=== PATIENT | male | born 1980 | race Caucasian/White ===

== ENCOUNTER 2021-08-01 17:48 | Outpatient (REF) | payer MEDICAID, SELFPAY ==
[2021-08-07 13:28] LABS: 2-OH-Ethyl-Flurazepam Negative ng/mL (Cutoff: 10); 7-NH-Clonazepam 304 ng/mL (Cutoff: 10); 7-NH-Flunitrazepam Negative ng/mL (Cutoff: 10); Alpha OH-Alprazolam Negative ng/mL (Cutoff: 10); Alpha-OH Midazolam Negative ng/mL (Cutoff: 10); Alpha-OH-Triazolam Negative ng/mL (Cutoff: 10); Alprazolam Negative ng/mL (Cutoff: 10); Benzodiazepines Interpretation Positive.; Chlordiazepoxide Negative ng/mL (Cutoff: 10); Clobazam Negative ng/mL (Cutoff: 10); Clonazepam 10 ng/mL (Cutoff: 10); Diazepam Negative ng/mL (Cutoff: 10); Flurazepam Negative ng/mL (Cutoff: 10); Lorazepam Negative ng/mL (Cutoff: 10); Midazolam Negative ng/mL (Cutoff: 10); N-Desmethylclobazam Negative ng/mL (Cutoff: 10); Prazepam Negative ng/mL (Cutoff: 10); Temazepam Negative ng/mL (Cutoff: 10); Triazolam Negative ng/mL (Cutoff: 10); Zolpidem Carboxylic acid Negative ng/mL (Cutoff: 10)
== END 2021-08-01 17:49 | disposition home or self-care (01) ==
LOC: NCHCN 17:48
PROVIDERS: Visit Provider Family Medicine
DX: Z51.81 Encounter for therapeutic drug level monitoring (principal); R82.5 Elevated urine levels of drugs, medicaments and biological substances
CPT/HCPCS: 80346

== ENCOUNTER 2021-09-09 13:26 | Emergency (ER) | payer MEDICAID, SELFPAY ==
[2021-09-09 13:38] VITALS: BP 118/65; PULSE 74; RESP 14; TEMP 36.7; O2SAT 96
--- NOTE | 2021-09-09 13:56 | W.ED.GENAD ---
Discharge Plan Disposition Patient Disposition: HOME Condition: Good Discharge Details Clinical Impression: Open leg wound Primary Care Provider: Unknown,Unknown ED Provider: Alexia Escobar Home Meds and New Rx's Prescriptions: Continued Biktarvy 30-120-15 mg Tablet 1 tab PO DAILY Rx Instructions: unsure of dose Vyvanse 60 mg Capsule 60 mg PO DAILY clonazepam 2 mg Tablet 2 mg PO DAILY aripiprazole [Abilify] 10 mg Tablet 10 mg PO DAILY Discharge Instructions Instructions: Acute Wound Care (ED) Additional Instructions: The wound on the back of her leg does not appear acutely infected. However, with the low risk of infection, I do feel that it would be appropriate for you to use your typical Bactrim twice a day for the next 5 days. Please keep the current dressing on for the next 5 days. Please follow-up with your primary care this week to have your wound reevaluated. If you develop fevers/chills, increased pain or other new/worsening symptoms please seek care urgently once again. Referrals: Renny Alex [ [facility] STAFF PHYSICIAN] - Discharge Data Discharge Date/Time-TO BE ENTERED AT DEPARTURE: 09/09/21 15:38 Medical Decision Making Patient is a 40 year old male presenting today with c/c of lesion to left posterior thigh. He states that about one week ago he pulled somethign off this area while in the shower. Is not sure if this was a tick or scab. He states taht since then he continues to catch the area on his pants when he pulls them up. Denies fevers/chills. No rash elsewhere. No radiation of pain. He reports that he has a history of HIV, states this is well controlled. He states he often gets MRSA infections but has not had one in quite some time. States that he has Bactrim at home from his ID physician in the event he has skin infection. On exam, patient appears nontoxic. He has a nickel size wound to posterior left thigh. Appears to have romoved thee skin in this areae. No surrounding erythema, warmth, drainage, induration. Does not appear infected. He had a flap of scab over the area that appears to have been catching. No bullseye rash. Patient is not in the window for tick and Lyme testing in the event that this was tick bite. Wound was cleansed by myself. The scab was debrided. Attempted to have wound care nurse evaluate the patient but they were not available. Mepelex was applied over this area. The patient and I discussed risks/benefits of abx. given his risk factors, and his history of MRSA infection, will have him take the abx that is recommended by his typical ID team. He reports that he has plenty at home. I have asked that he f/u with his PCP this week for reevaluation. Strict return precautions given. All of his quesitons and concerns were addressed, he is in agreement with this plan. HPI General Date/Time Provider Initiated Documentation: 09/09/21 13:26. Limitations to Documentation: no limitations. Information obtained by: patient and RN notes reviewed. History of Present Illness 40 year old M presents to the emergency department with the chief complaint of lesion posterior left thigh, described as moderate, Quality is described as burning, and is localized to the left and lower extremity. Patient reports no radiation. Patient started experiencing this day(s) and it has been constant. Immobilization improves symptom(s), (pressure off of the area) Movement worsens symptoms (pressure on the wound) . Patient notes no other symptoms.. Patient did receive the following treatments prior to arrival, none Related Data Home Medications Medication Instructions Recorded Confirmed aripiprazole 10 mg tablet (Abilify) 10 mg PO DAILY 09/09/21 09/09/21 bictegravir 30 mg-emtricitabine 1 tab PO DAILY 09/09/21 120 mg-tenofovir alafenam 15 mg tablet (Biktarvy) clonazepam 2 mg tablet 2 mg PO DAILY 09/09/21 09/09/21 lisdexamfetamine 60 mg capsule 60 mg PO DAILY 09/09/21 09/09/21 (Vyvanse) Allergies Allergy/AdvReac Type Severity Reaction Status Date / Time No Known Allergies Allergy Unverified 09/09/21 15:02 General Stated Complaint: RashLesion PATRICK: 5 Review of Systems Constitutional Constitutional: Reports as per HPI, Denies chills and Denies fever(s) Musculoskeletal Musculoskeletal: Reports as per HPI Integumentary/Breasts Skin/Breast: Reports as per HPI Neurologic Neurologic: Reports as per HPI, Denies sensory deficit and Denies paresthesias [facility] All Active Problems (Updated 09/09/21 @ 15:12 by SINGH Soni) Open leg wound (Acute) Social History Smoking/Tobacco Use Status: Former Tobacco Use Smoking risk assessment performed?: Yes Drug use: Daily Substance use type: marijuana Do you feel safe at home: Yes (depends on what day it is) Do you feel safe in your relationship?: Yes Additional Social history: offered assistance - states he has a bad neighbor Exam Const General: cooperative, healthy appearing, comfortable, no acute distress and well developed Nutritional Appearance: average body habitus and well nourished Orientation: alert and awake Resp Effort & Inspection: normal respiratory effort, able to speak in complete sentences and no respiratory distress Cardio Rate: regular rate Rhythm: regular rhythm Skin Lesions: lesion noted (posterior left thigh) Neuro General: patient alert and patient awake Cognition: normal cognition Speech: speech normal Gait: normal gait Sensory Exam: no sensory deficits noted Extrem Upper/lower leg/hip images: 1. Nickel sized circular area of wound opening. No active drainage. Has flap of scab that appears to have been pulled back. Superficial wound, no tracking or deep space involvement. No surrounding erythema, warmth or induration. Psych Appearance: grossly normal and well kempt Mental Status: mental status grossly normal Speech and Movement: speech and movement normal Course Vital Signs Vital signs: Vital Signs Temperature 36.7 C 09/09/21 13:38 Pulse 74 09/09/21 13:38 Respiratory Rate 14 09/09/21 13:38 Blood Pressure 118/65 09/09/21 13:38 Pulse Oximetry 96 09/09/21 13:38 Temperature 36.7 C 09/09/21 13:38 Temperature Source Oral 09/09/21 13:38 Pulse 74 09/09/21 13:38 Respiratory Rate 14 09/09/21 13:38 Blood Pressure 118/65 09/09/21 13:38 Blood Pressure Position Sitting 09/09/21 13:38 Pulse Oximetry 96 09/09/21 13:38 Oxygen Delivery Method Room Air 09/09/21 13:38 Oxygen Flow Rate 0 09/09/21 13:38
== END 2021-09-09 15:38 | disposition home or self-care (01) ==
PROVIDERS: Emergency Provider Physician Assistant; PCP Family Medicine
DX: S81.802A Unspecified open wound, left lower leg, initial encounter (principal); X58.XXXA Exposure to other specified factors, initial encounter; Z21 Asymptomatic human immunodeficiency virus [HIV] infection status; Z86.14 Personal history of Methicillin resistant Staphylococcus aureus infection
CPT/HCPCS: 99281

== ENCOUNTER 2021-11-07 17:06 | Outpatient (REF) | payer MEDICAID, SELFPAY ==
[2021-11-15 13:46] LABS: Amphetamine 18550 ng/mL (Cutoff: 25); Amphetamines Interpretation Positive.; MDA (Ecstasy Metabolite) Negative ng/mL (Cutoff: 25); MDMA (Ecstasy) Negative ng/mL (Cutoff: 25); Methamphetamine 1730 ng/mL (Cutoff: 25); Phentermine Negative ng/mL (Cutoff: 25); Pseudoephedrine/Ephedrine Negative ng/mL (Cutoff: 25)
== END 2021-11-07 17:07 | disposition home or self-care (01) ==
LOC: NCHCN 17:06
PROVIDERS: PCP Family Medicine; Visit Provider Family Medicine
DX: Z51.81 Encounter for therapeutic drug level monitoring (principal)
CPT/HCPCS: 80324

== ENCOUNTER 2022-07-27 20:53 | Emergency (ER) | payer MEDICAID, SELFPAY ==
[2022-07-27 20:59] VITALS: BP 136/69; PULSE 74; RESP 18; TEMP 36.6; O2SAT 97
--- NOTE | 2022-07-27 21:15 | ED.GENADUL_ITS ---
Discharge Plan Disposition Patient Disposition: Home Condition: Good Discharge Details Clinical Impression: Acute paronychia of finger of left hand Primary Care Provider: Ragini Rodriguez ED Provider: Yoel Cabral Home Meds and New Rx's Prescriptions: New sulfamethoxazole-trimethoprim [Bactrim DS] 800-160 mg tablet 1 tab PO BID 7 Days Qty: 14 0RF No Action aripiprazole [Abilify] 10 mg tablet 10 mg PO DAILY Vyvanse 50 mg capsule 50 mg PO DAILY lurasidone 40 mg tablet 40 mg PO DAILY Rx Instructions: must administer with food (at least 350 calories) imiquimod 5 % cream in packet 1 applic topical .COMPLEX Qty: 48 0RF Rx Instructions: 1 applic topically 3x/week; Apply a thin layer 3 times per week (on alternate days) at bedtime; leave on skin for 6-10 hours, then remove with mild soap and water. Continue until there is total clearance of the warts or for a maximum duration of therapy of 16 weeks. Biktarvy 30-120-15 mg Tablet 1 tab PO DAILY Rx Instructions: unsure of dose Discharge Instructions Instructions: Sulfamethoxazole/Trimethoprim (By mouth), Paronychia (ED) Additional Instructions: At this time you have evidence of a skin infection called paronychia. Please take the antibiotic Bactrim as directed. It is been sent to your pharmacy on file. If you notice any extension of the pain or redness of your finger, or significant pain with movement of your finger please return immediately. If you notice any worsening of your symptoms, or any new symptoms such as vomiting, diarrhea, fever, chills, shortness of breath, chest pain, numbness, weakness, or fainting , please return immediately to the emergency department for reevaluation. Please follow up with your primary care provider as soon as possible for reassessment and reevaluation. As always, it was a pleasure participating in your medical care today. Referrals: Ragini Rodriguez NP [Primary Care Provider] - Medical Decision Making 41-year-old male with a past medical history of HIV which is contro lled with medication, history of previous abscesses that were MRSA positive, presents today for a lesion on his left index finger. Is been present for the last few days. Mild swelling and tenderness. He denies any drainage. He states that he has had lesions like this in the past for which she is taking Bactrim. They were MRSA in the past. No other complaints at this time. No significant pain with flexion or extension of the finger. No fever or chills. Physical exam demonstrates evidence of large paronychia on the patient's left index finger. The area was drained and cultured. No evidence of flexor or extensor tenosynovitis clinically on exam. Will treat with a bottle of Bactrim here and a prescription for home use. Discussed red flags for which to return. I have extensively reviewed the treatment plan and discharge instructions with the patient. I have addressed all patient concerns at this time. The patient was made aware of what symptoms to monitor for that would warrant a return to the emergency department. Discussed the plan with the patient, they demonstrate verbal understanding and agreement with our assessment and plan at this time. The documentation in this chart was dictated using [employer] dictation software. Please excuse any dictation errors. HPI General Date/Time Provider Initiated Documentation: 07/27/22 21:14 . HPI Narrative: 41-year-old male with a past medical history of HIV which is controlled with medication, history of previous abscesses that were MRSA positive, presents today for a lesion on his left index finger. Is been present for the last few days. Mild swelling and tenderness. He denies any drainage. He states that he has had lesions like this in the past for which she is taking Bactrim. They were MRSA in the past. No other complaints at this time. No significant pain with flexion or extension of the finger. No fever or chills. Related Data Home Medications Medication Instructions Recorded Confirmed bictegravir 30 mg-emtricitabine 1 tab PO DAILY 09/09/21 07/27/22 120 mg-tenofovir alafenam 15 mg tablet (Biktarvy) aripiprazole 10 mg tablet (Abilify) 10 mg PO DAILY 07/10/22 07/27/22 imiquimod 5 % topical cream packet 1 applic topical .COMPLEX #48 ea 07/10/22 07/27/22 lisdexamfetamine 50 mg capsule 50 mg PO DAILY 07/10/22 07/27/22 (Vyvanse) lurasidone 40 mg tablet 40 mg PO DAILY 07/10/22 07/27/22 sulfamethoxazole 800 1 tab PO BID 7 days #14 tabs 07/27/22 mg-trimethoprim 160 mg tablet (Bactrim DS) Previous Rx's Medication Instructions Recorded imiquimod 5 % topical cream packet 1 applic topical .COMPLEX #48 ea 07/10/22 sulfamethoxazole 800 1 tab PO BID 7 days #14 tabs 07/27/22 mg-trimethoprim 160 mg tablet (Bactrim DS) Allergies Allergy/AdvReac Type Severity Reaction Status Date / Time mushroom Allergy Intermediate Swelling/Ed Verified 07/27/22 21:03 christopher pollen extracts Allergy Intermediate Verified 07/27/22 21:03 General Stated Complaint: RashLesion PATRICK: 4 Review of Systems All systems reviewed & are unremarkable except as noted in HPI and below PFSH All Active Problems Acute paronychia of finger of left hand (Acute) Medical cannabis use (Chronic) Cannabis dependence (Acute) HIV (human immunodeficiency virus infection) (Chronic ~2018) Bipolar 1 disorder (Chronic) Nasal septum ulceration (Acute) ADHD (attention deficit hyperactivity disorder) (Chronic) Genital warts (Acute) Anal dysplasia (Acute) Medical History Cellulitis and abscess of face History of methicillin resistant staphylococcus aureus (MRSA) PVD (posterior vitreous detachment), left eye Substance use disorder Previous PCP record indicates pt reported using stimulant street drugs in the past (pg 16 of 85 pg PDF) Tertiary syphilis Ocular syphilis Tobacco use disorder Surgical History Status post extracapsular cataract extraction of left eye Family History Paternal Grandmother Alcohol use disorder Maternal Grandfather Prostate cancer Diabetes Paternal Uncle Throat cancer Mother Diabetes High cholesterol Other Heart disease Social History Smoking/Tobacco Use Status: Former Tobacco Use Tobacco: How many years used: 10 Quit status: has quit before Second Hand Exposure: No Smoking risk assessment performed?: Yes Alcohol Intake: current Alcohol Intake frequency: a few times a month Drug use: Daily Substance use type: marijuana Adopted: No Caregiver/Support person: No Foster care: No Household members: none Housing: house Number of Children: 2 Education Level: college Details: Master's Degree Do you need help understanding health information?: Rarely current occupation: unemployed Pets and animals: Yes Pets and animals: dog(s) Sexually active: Yes Do you think of yourself as: bisexual Current gender identity: male What is your relationship status?: How often do you talk on the phone with friends or family?: once per week How often do you get together with friends or relatives?: once per week Do you belong to any clubs or organized social groups?: no Panel score (0-1 are the most socially isolated patients): 0 What type of physical activity do you participate in: none Meli/Synagogue: None Seatbelt use: always Helmet use: Yes Helmet use: always Drive intox or ride w/intox tier truck driver: No Do you feel safe at home: Yes (depends on what day it is) Do you feel safe in your relationship?: Yes Additional Social history: offered assistance - states he has a bad neighbor Exam Narrative Exam Narrative: 1.Const: Well-nourished, Well-developed, appearing stated age 2.Eyes: PERRL, no conjunctival injection, and symmetrical lids. 3.ENT: Atraumatic external nose and ears. Moist MM. Neck: Symmetric, trachea midline, No thyromegaly. 4.CVS: +S1/S2, No murmurs or gallops. Peripheral pulses 2+ and equal in all extremities. Brisk capillary refill in all extremities. 5.RESP: Unlabored respiratory effort. Clear to auscultation bilaterally. No wheezes rales or rhonchi 6.GI: Soft, Nontender/Nondistended, No hepatosplenomegaly. No guarding or rebound. 7.MSK: Normocephalic/Atraumatic, Extremities w/o deformity or ttp No cyanosis or clubbing, Normal movement of all extremities 8.Skin: Left index finger demonstrates a large paronychia No active drainage. Minimal redness and swelling surrounding the area. It is fluctuant. Notable loss. No pain with active or passive flexion or extension of the finger. No sausage shaped digit. 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 Sensation grossly intact, no focal neurologic deficits. 10.Psych: (AAO) x3. Appropriate mood and affect Course Vital Signs Vital signs: Vital Signs Temperature 36.6 C 07/27/22 20:59 Pulse 74 07/27/22 20:59 Respiratory Rate 18 07/27/22 20:59 Blood Pressure 136/69 07/27/22 20:59 Pulse Oximetry 97 07/27/22 20:59 Temperature 36.6 C 07/27/22 20:59 Temperature Source Oral 07/27/22 20:59 Pulse 74 07/27/22 20:59 Respiratory Rate 18 07/27/22 20:59 Respiratory Effort Normal 07/27/22 21:04 Blood Pressure 136/69 07/27/22 20:59 Blood Pressure Position Sitting 07/27/22 20:59 Pulse Oximetry 97 07/27/22 20:59 Oxygen Delivery Method Room Air 07/27/22 20:59 Oxygen Flow Rate 0 07/27/22 20:59 Pain Level 4 07/27/22 20:59 Procedures Abscess I/D Site: Hand (Left index finger) Side (if applicable): Left Technique: Needle Aspiration Irrigation: No Packing used?: None
[2022-07-27] MEDS: Sulfameth/Trimeth DS, 2 TABS/BTL 1 TAB PO (21:28)
== END 2022-07-27 21:32 | disposition home or self-care (01) ==
PROVIDERS: Emergency Provider Student in an Organized Health Care Education/Training Program; PCP Nurse Practitioner Family
DX: L03.012 Cellulitis of left finger (principal); Z21 Asymptomatic human immunodeficiency virus [HIV] infection status
CPT/HCPCS: 10160; 87077; 99283; 87070; 87186; 87205; 99284

== ENCOUNTER 2022-12-20 12:22 | Observation (INO) | payer MEDICAID, SELFPAY ==
[2022-12-20] VITALS (16 sets, daily range): BP systolic 99–166; BP diastolic 56–90; PULSE 63–110; RESP 13–21; TEMP 35.6–37; O2SAT 96–100; BMI 20.7
--- NOTE | 2022-12-20 12:53 | ED.GENADUL_ITS ---
Discharge Plan Disposition Patient Disposition: Admit to [facility] Condition: Stable Discharge Details Chief Complaint: Cellulitis Clinical Impression: Abscess, perianal Primary Care Provider: Ragini Rodriguez ED Provider: Parminder Braxton Home Meds and New Rx's Prescriptions: No Action aripiprazole [Abilify] 10 mg tablet 10 mg PO DAILY Vyvanse 50 mg capsule 50 mg PO DAILY lurasidone 40 mg tablet 40 mg PO DAILY Rx Instructions: must administer with food (at least 350 calories) imiquimod 5 % cream in packet 1 applic topical .COMPLEX Qty: 48 0RF Rx Instructions: 1 applic topically 3x/week; Apply a thin layer 3 times per week (on alternate days) at bedtime; leave on skin for 6-10 hours, then remove with mild soap and water. Continue until there is total clearance of the warts or for a maximum duration of therapy of 16 weeks. Biktarvy 30-120-15 mg Tablet 1 tab PO DAILY Rx Instructions: unsure of dose Medical Decision Making 42 yo male with hx of hib, adhd, who comes in with cc of feeling as though he has an abscess just left to his rectum for 3 days. Denies fevers, chills, abdomen pain, drainage from the rectum. He is stable on arrival, does have 3cm erythema just left of the anal entrance, no visible white head, does feel fluctuant. Suspect perianal abscess, will obtain CT to delineate how deep the abscess is. pt with 4x4cm abscess, discussed with surgeon Dr. De Dios who plans to bring to the OR for drainage, pt updated and agrees with plan Differential Diagnosis Differential Diagnosis: perianal, ischiorectal abscess Imaging Data Radiologic Study: Attestation: I personally reviewed and interpreted this imaging study as follows: Imaging: CT Scan Radiologist's impression: Patient Name: Sam Quinn III Unit #: [id number] Loc: ER ? Ordering Provider:? Parminder Braxton M.D. Status: REG ER ? Primary Care Provider: Ragini Rodriguez [employer] Date of Exam: 12/20/22 Sex: M ? : 1980 Age: 42 ? Exam(s) a CT:CT abdomen & pelvis w Exam(s) CT ABDOMEN ? PELVIS W EXAM:? CT ABDOMEN ? PELVIS W CLINICAL HISTORY: ? ?rectal abscess ? TECHNIQUE:? Imaging Protocol: Axial computed tomography images with coronal and sagittal reformatted images were created and reviewed CONTRAST MATERIAL:? Intravenous: Omnipaque 350 Contrast volume:100 mL Oral: No COMPARISON:? No exams were available for comparison FINDINGS: ABDOMEN: Lung Bases: Normal where visualized. Liver: Normal density. There are 2 4 mm hypodensities in the right lobe of the liver.? There is a 3 mm hypodense lesion in the subcapsular region of the left lobe of the liver.? These are indeterminate.? Portal, Superior Mesenteric, and Splenic Veins: Unremarkable.? Gallbladder and Biliary Tract: No radiodense calculus or dilation. Pancreas: Normal density, no abnormal calcifications or inflammatory process. Spleen: Normal. Adrenals: No masses seen. Kidneys: Normal size, contour and axis. No radiodense stones or obstructive uropathy. No masses seen. Abdominal Aorta: Abdominal portion non-dilated. Mild atherosclerosis. Bowel: No obstruction or bowel wall thickening. No evidence of appendicitis.? Peritoneal Cavity: No ascites, collection or mesenteric inflammatory response.? No free air. Lymph Nodes: Within normal limits. Bones: Within normal limits for the patient's age.? Soft Tissues: There is a multiloculated fluid collection in the perirectal subcutaneous tissues measuring 4.5 cm cc by 4.2 cm AP x 2.8 cm transverse.? PELVIS: Bladder: Symmetric distention, no gross wall thickening. Reproductive Organs: Unremarkable as visualized. Lymph Nodes: Within normal limits. Bones: Within normal limits for the patient's age.? IMPRESSION: 1. 4.5 x 4.2 x 2.8 cm left perirectal abscess. 2. Tiny hypodensities in the liver.? Follow-up MRI without and with contrast should be considered for further evaluation. 3. Findings were discussed with Dr. Braxton at 2:21 p.m. on 12/20/2022. Lab Data Lab results reviewed: Yes I reviewed the patient's lab results. HPI General Mode of arrival: ambulatory . Date/Time Provider Initiated Documentation: 12/20/22 12:25 . Limitations to Documentation: no limitations . Information obtained by: patient . History of Present Illness 42 year old M presents to the emergency department with the chief complaint of left sided rectal pain/swelling, described as moderate, Quality is described as aching, Patient started experiencing this day(s) (3) and it has been constant. No relieving factors improve symptom(s), No exacerbating factors reported . Patient notes no other symptoms.. Patient did receive the following treatments prior to arrival, none Related Data Home Medications Medication Instructions Recorded Confirmed bictegravir 30 mg-emtricitabine 1 tab PO DAILY 09/09/21 07/27/22 120 mg-tenofovir alafenam 15 mg tablet (Biktarvy) aripiprazole 10 mg tablet (Abilify) 10 mg PO DAILY 07/10/22 07/27/22 imiquimod 5 % topical cream packet 1 applic topical .COMPLEX #48 ea 07/10/22 07/27/22 lisdexamfetamine 50 mg capsule 50 mg PO DAILY 07/10/22 07/27/22 (Vyvanse) lurasidone 40 mg tablet 40 mg PO DAILY 07/10/22 07/27/22 Previous Rx's Medication Instructions Recorded imiquimod 5 % topical cream packet 1 applic topical .COMPLEX #48 ea 07/10/22 Allergies Allergy/AdvReac Type Severity Reaction Status Date / Time mushroom Allergy Intermediate Swelling/Ed Verified 07/27/22 21:03 christopher pollen extracts Allergy Intermediate Verified 07/27/22 21:03 General Stated Complaint: RashLesion PATRICK: 3 Review of Systems All systems reviewed & are unremarkable except as noted in HPI and below Constitutional Constitutional: Denies chills, Denies fever(s) and Denies weakness Cardiovascular Cardiovascular: Denies chest pain and Denies dyspnea Respiratory Respiratory: Denies cough and Denies dyspnea Gastrointestinal Gastrointestinal: Denies abdominal pain, Denies nausea and Denies vomiting Musculoskeletal Musculoskeletal: Denies joint swelling Neurologic Neurologic: Denies weakness [facility] All Active Problems (Updated 12/20/22 @ 14:54 by Parminder Braxton MD) Abscess, perianal (Acute) Risk for sexually transmitted disease (Acute) Medical cannabis use (Chronic) Cannabis dependence (Acute) HIV (human immunodeficiency virus infection) (Chronic ~2018) Bipolar 1 disorder (Chronic) Nasal septum ulceration (Acute) ADHD (attention deficit hyperactivity disorder) (Chronic) Genital warts (Acute) Anal dysplasia (Acute) Medical History Cellulitis and abscess of face History of methicillin resistant staphylococcus aureus (MRSA) Infection of rectum due to Chlamydia trachomatis (~05/22/22) PVD (posterior vitreous detachment), left eye Substance use disorder Previous PCP record indicates pt reported using stimulant street drugs in the past (pg 16 of 85 pg PDF) Tertiary syphilis Ocular syphilis Tobacco use disorder Surgical History Status post extracapsular cataract extraction of left eye Family History Paternal Grandmother Alcohol use disorder Maternal Grandfather Prostate cancer Diabetes Paternal Uncle Throat cancer Mother Diabetes High cholesterol Other Heart disease Social History Smoking/Tobacco Use Status: Former Tobacco Use Tobacco: How many years used: 10 Quit status: has quit before Second Hand Exposure: No Smoking risk assessment performed?: Yes Alcohol Intake: current Alcohol Intake frequency: a few times a month Drug use: Daily Substance use type: marijuana Adopted: No Caregiver/Support person: No Foster care: No Household members: none Housing: house Number of Children: 2 Education Level: college Details: Master's Degree Do you need help understanding health information?: Rarely current occupation: unemployed Pets and animals: Yes Pets and animals: dog(s) Sexually active: Yes Do you think of yourself as: bisexual Current gender identity: male What is your relationship status?: How often do you talk on the phone with friends or family?: once per week How often do you get together with friends or relatives?: once per week Do you belong to any clubs or organized social groups?: no Panel score (0-1 are the most socially isolated patients): 0 What type of physical activity do you participate in: none Meli/Congregational: None Seatbelt use: always Helmet use: Yes Helmet use: always Drive intox or ride w/intox caterpillar driver: No Do you feel safe at home: Yes Do you feel safe in your relationship?: Yes Exam Const General: no acute distress Orientation: alert HENMT Head: normal to inspection Ears: external ears normal General nose exam: external nose normal Mouth: moist mucous membranes Eyes General: appearance normal, both eyes and all related structures Neck Neck: normal visual inspection Resp Effort & Inspection: normal respiratory effort and able to speak in complete sentences Cardio Rate: regular rate GI Palpation: soft and nontender Skin General skin exam: no rashes or lesions noted Neuro General: patient alert and patient oriented x3 Extrem General: normal to inspection Psych Mental Status: mental status grossly normal Course Vital Signs Vital signs: Vital Signs Temperature 36.2 C L 12/20/22 12:27 Pulse 110 H 12/20/22 12:27 Respiratory Rate 18 12/20/22 12:27 Blood Pressure 117/79 12/20/22 12:27 Pulse Oximetry 97 12/20/22 12:27 Temperature 36.2 C L 12/20/22 12:27 Temperature Source Oral 12/20/22 12:27 Pulse 110 H 12/20/22 12:27 Respiratory Rate 18 12/20/22 12:27 Respiratory Effort Normal, Non-Labored 12/20/22 12:45 Blood Pressure 117/79 12/20/22 12:27 Blood Pressure Position Sitting 12/20/22 12:27 Pulse Oximetry 97 12/20/22 12:27 Oxygen Delivery Method Room Air 12/20/22 12:27 Oxygen Flow Rate 0 12/20/22 12:27
[2022-12-20 13:12] LABS: Abs Immature Grans 0.04 10^3/uL (0.0-0.06); Absolute Basophil Count 0.03 10^3/uL (0.0-0.2); Absolute Eosinophil Count 0.09 10^3/uL (0.0-0.7); Absolute Lymphocyte Count 0.98 10^3/uL (1.2-3.4); Absolute Monocyte Count 0.82 10^3/uL (0.1-0.8); Absolute Neutrophil Count 7.27 10^3/uL (1.2-6.7); Basophils % 0.3; HCT 43.2 % (40.0-50.0); HGB 15.1 g/dL (13.5-17.5); Immature Grans % 0.4; Lymphocytes % 10.6; MCH 30.6 pg (27.0-33.0); MCV 87 fL (80-95); MPV 9.9 fL (8.0-11.0); Monocytes % 8.9; Neutrophils % 78.8; Platelet Count 259 10^3/uL (130-400); RBC 4.94 10^6/uL (4.36-5.78); RDW 12.2 % (11.8-14.1); RDW-SD 39.1 fL; WBC 9.23 10^3/uL (4.4-10.8)
[2022-12-20 13:23] LABS: ALT 18 U/L (16-63); AST 12 U/L (15-37); Albumin 3.5 g/dL (3.4-5.0); BUN 13 mg/dL (7-18); Bilirubin, Total 0.9 mg/dL (0.2-1.0); CREATININE 1.2 mg/dL (0.70-1.30); Calcium 9.4 mg/dL (8.5-10.1); Chloride 100 mmol/L (98-107); Estimated GFR 76.48 (mL/min/1.73m2); Glucose 113 mg/dL (74-106); Magnesium 1.8 mg/dL (1.8-2.4); Potassium 3.8 mmol/L (3.5-5.1); Sodium 135 mmol/L (136-145); Total Protein 7.9 g/dL (6.4-8.2)
[2022-12-20 13:33] LABS: Alkaline Phosphatase 88 U/L (46-116)
--- NOTE | 2022-12-20 13:56 | DI.CT_ITS ---
Exam(s) CT ABDOMEN PELVIS W EXAM: CT ABDOMEN PELVIS W CLINICAL HISTORY: ?rectal abscess TECHNIQUE: Imaging Protocol: Axial computed tomography images with coronal and sagittal reformatted images were created and reviewed CONTRAST MATERIAL: Intravenous: Omnipaque 350 Contrast volume:100 mL Oral: No COMPARISON: No exams were available for comparison FINDINGS: ABDOMEN: Lung Bases: Normal where visualized. Liver: Normal density. There are 2 4 mm hypodensities in the right lobe of the liver. There is a 3 m m hypodense lesion in the subcapsular region of the left lobe of the liver. These are indeterminate. Portal, Superior Mesenteric, and Splenic Veins: Unremarkable. Gallbladder and Biliary Tract: No radiodense calculus or dilation. Pancreas: Normal density, no abnormal calcifications or inflammatory process. Spleen: Normal. Adrenals: No masses seen. Kidneys: Normal size, contour and axis. No radiodense stones or obstructive uropathy. No masses seen. Abdominal Aorta: Abdominal portion non-dilated. Mild atherosclerosis. Bowel: No obstruction or bowel wall thickening. No evidence of appendicitis. Peritoneal Cavity: No ascites, collection or mesenteric inflammatory response. No free air. Lymph Nodes: Within normal limits. Bones: Within normal limits for the patient's age. Soft Tissues: There is a multiloculated fluid collection in the perirectal subcutaneous tissues measu ring 4.5 cm cc by 4.2 cm AP x 2.8 cm transverse. PELVIS: Bladder: Symmetric distention, no gross wall thickening. Reproductive Organs: Unremarkable as visualized. Lymph Nodes: Within normal limits. Bones: Within normal limits for the patient's age. IMPRESSION: 1. 4.5 x 4.2 x 2.8 cm left perirectal abscess. 2. Tiny hypodensities in the liver. Follow-up MRI without and with contrast should be considered for further evaluation. 3. Findings were discussed with Dr. Braxton at 2:21 p.m. on 12/20/2022. Unexpected findings RADIATION DOSE DELIVERED: 710.38mGy.cm Total DLP DATA REPOSITORY: All CT scans at this facility are submitted to the National Radiology Data Registry (NRDR) Dose Index Registry (DIR) with the [employer] (ACR). RADIATION OPTIMIZATION: All CT scans at this facility use at least one of these dose optimization te chniques: automated exposure control; mA and/or kV adjustment per patient size (includes targeted exa ms where dose is matched to clinical indication); or iterative reconstruction.
--- NOTE | 2022-12-20 14:39 | W.PM.HP.N ---
Date of service: 12/20/22 Time of Service: 14:39 Assessment and Plan Assessment and plan (1) Abscess, perianal: Status: Acute Assessment and plan: He does appear to have a perianal abscess. He will benefit from incision and drainage of the abscess. Given his other medical comorbidities, I think it is reasonable to keep him overnight for inpatient observation. We will continue the intravenous antibiotics tonight and repeat a CBC tomorrow to make sure there is no significant change. Assuming he tolerates the discomfort associated with I&D, and has no other signs of sepsis, will plan to discharge him home with outpatient antibiotics at that point. History of Present Illness History of Present Illness Chief Complaint: Anal pain Narrative: Sam is 42 years old. He comes to the emergency department with pain around his anus. He says its been increasing for about 3 days. He denies fevers chills, or any systemic signs of infection. He denies any other particular anorectal pathology. This is never happened to him before. Review of Systems Constitutional Constitutional: Denies body ache(s), Denies fatigue, Denies fever(s), Denies lethargy and Denies poor appetite Eyes Eyes: Reports system reviewed and no additional complaints, except as documented ENT Ears, Nose, Mouth, and Throat: Reports system reviewed and no additional complaints, except as documented Cardiovascular Cardiovascular: Denies chest pain and Denies dyspnea Respiratory Respiratory: Denies chest congestion, Denies cough and Denies dyspnea Gastrointestinal Gastrointestinal: Denies abdominal pain, Denies bloating and Denies constipation Genitourinary Genitourinary: Denies difficulty urinating and Denies scrotal swelling Musculoskeletal Musculoskeletal: Denies myalgias Neurologic Neurologic: Reports system reviewed and no additional complaints, except as documented Psychiatric Psychiatric: Reports system reviewed and no additional complaints, except as documented Endocrine Endocrine: Denies fatigue Hematologic/Lymphatic Hematologic/Lymphatic: Denies easy bleeding and Denies easy bruising PFSH All Active Problems Abscess, perianal (Acute) Risk for sexually transmitted disease (Acute) Medical cannabis use (Chronic) Cannabis dependence (Acute) HIV (human immunodeficiency virus infection) (Chronic ~2018) Bipolar 1 disorder (Chronic) Nasal septum ulceration (Acute) ADHD (attention deficit hyperactivity disorder) (Chronic) Genital warts (Acute) Anal dysplasia (Acute) Medical History Cellulitis and abscess of face History of methicillin resistant staphylococcus aureus (MRSA) Infection of rectum due to Chlamydia trachomatis (~05/22/22) PVD (posterior vitreous detachment), left eye Substance use disorder Previous PCP record indicates pt reported using stimulant street drugs in the past (pg 16 of 85 pg PDF) Tertiary syphilis Ocular syphilis Tobacco use disorder Surgical History Status post extracapsular cataract extraction of left eye Family History Paternal Grandmother Alcohol use disorder Maternal Grandfather Prostate cancer Diabetes Paternal Uncle Throat cancer Mother Diabetes High cholesterol Other Heart disease Social History Smoking/Tobacco Use Status: Former Tobacco Use Tobacco: How many years used: 10 Quit status: has quit before Second Hand Exposure: No Smoking risk assessment performed?: Yes Alcohol Intake: current Alcohol Intake frequency: a few times a month Drug use: Daily Substance use type: marijuana Adopted: No Caregiver/Support person: No Foster care: No Household members: none Housing: house Number of Children: 2 Education Level: college Details: Master's Degree Do you need help understanding health information?: Rarely current occupation: unemployed Pets and animals: Yes Pets and animals: dog(s) Sexually active: Yes Do you think of yourself as: bisexual Current gender identity: male What is your relationship status?: How often do you talk on the phone with friends or family?: once per week How often do you get together with friends or relatives?: once per week Do you belong to any clubs or organized social groups?: no Panel score (0-1 are the most socially isolated patients): 0 What type of physical activity do you participate in: none Meli/Roman Catholic: None Seatbelt use: always Helmet use: Yes Helmet use: always Drive intox or ride w/intox roll off driver: No Do you feel safe at home: Yes Do you feel safe in your relationship?: Yes Meds Allergies and Home Medications Allergies Allergy/AdvReac Type Severity Reaction Status Date / Time mushroom Allergy Intermediate Swelling/Ed Verified 07/27/22 21:03 christopher pollen extracts Allergy Intermediate Verified 07/27/22 21:03 Home Medications Medication Instructions Recorded Confirmed Type bictegravir 30 mg-emtricitabine 1 tab PO DAILY 09/09/21 07/27/22 History 120 mg-tenofovir alafenam 15 mg tablet (Biktarvy) aripiprazole 10 mg tablet (Abilify) 10 mg PO DAILY 07/10/22 07/27/22 History imiquimod 5 % topical cream packet 1 applic topical .COMPLEX #48 ea 07/10/22 07/27/22 Rx lisdexamfetamine 50 mg capsule 50 mg PO DAILY 07/10/22 07/27/22 History (Vyvanse) lurasidone 40 mg tablet 40 mg PO DAILY 07/10/22 07/27/22 History Exam Const General: cooperative, healthy appearing and comfortable HENIA Head: normal to inspection Eyes General: appearance normal, both eyes and all related structures Resp Effort & Inspection: normal respiratory effort Auscultation: clear to auscultation bilaterally Cardio Rate: regular rate Rhythm: regular rhythm Heart Sounds: S1 normal and S2 normal GI Inspection: normal to inspection Palpation: soft, no guarding and nontender Other: Perianal erythema, fluctuance and tenderness Results Imaging Abdomen CT scan report/results: report reviewed and image reviewed CT scan - pelvis: report reviewed and image reviewed Labs 12/20/22 12:55 12/20/22 12:55 Labs: Laboratory Results - last 24 hr 12/20/22 12/20/22 12:55 12:55 WBC 9.23 RBC 4.94 Hgb 15.1 Hct 43.2 MCV 87 MCH 30.6 MCHC 35.0 RDW 12.2 Plt Count 259 MPV 9.9 Immature Gran % 0.4 Neutrophils % 78.8 Lymphocytes % 10.6 Monocytes % 8.9 Eosinophils % 1.0 Basophils % 0.3 Nucleated RBC % 0.0 Absolute Neutrophils 7.27 H Absolute Lymphocytes 0.98 L Absolute Monocytes 0.82 H Absolute Eosinophils 0.09 Absolute Basophils 0.03 Sodium 135 L Potassium 3.8 Chloride 100 Carbon Dioxide 26.0 Anion Gap 9.0 BUN 13 Creatinine 1.2 Est GFR (CKD-EPI 2020) 76.48 Glucose 113 H Calcium 9.4 Magnesium 1.8 Total Bilirubin 0.9 AST 12 L ALT 18 Alkaline Phosphatase 88 Total Protein 7.9 Albumin 3.5 Last Vital Signs Temp 97.2 F L 12/20/22 12:27 Pulse 110 H 12/20/22 12:27 Resp 18 12/20/22 12:27 BP 117/79 12/20/22 12:27 Pulse Ox 97 12/20/22 12:27 Time Spent Time spent with Patient: 40-54 minutes Time was spent: preparing to see the patient(eg.review tests), referring, communicating with other health home care assistant, indepentently interpreting results and counseling the patient
--- NOTE | 2022-12-20 14:40 | ANES.PREOP_ITS ---
General Info Date of Service Date Performed: 12/20/22 Height: 6 ft 4 in Weight: 77.111 kg Body Mass Index (BMI): 20.7 Surgical Procedure: Operation Date: 12/20/22 15:25 Proposed Procedure Side Surgeon p I&D of Buttock Abcramila De Dios MD Meds Allergies and Home Medications Allergies Allergy/AdvReac Type Severity Reaction Status Date / Time mushroom Allergy Intermediate Swelling/Ed Verified 07/27/22 21:03 christopher pollen extracts Allergy Intermediate Verified 07/27/22 21:03 Home Medication Medication Instructions Recorded bictegravir 30 mg-emtricitabine 1 tab PO DAILY 09/09/21 120 mg-tenofovir alafenam 15 mg tablet (Biktarvy) aripiprazole 10 mg tablet (Abilify) 10 mg PO DAILY 07/10/22 imiquimod 5 % topical cream packet 1 applic topical .COMPLEX #48 ea 07/10/22 lisdexamfetamine 50 mg capsule 50 mg PO DAILY 07/10/22 (Vyvanse) lurasidone 40 mg tablet 40 mg PO DAILY 07/10/22 Current Visit Medications: Current Medications Generic Name Dose Route Start Last Admin Trade Name Freq PRN Reason Stop Dose Admin Enoxaparin Sodium 40 mg 12/20/22 15:00 Enoxaparin 40 Mg/0.4 Ml Syr SC Q24H DEEJAY Piperacillin Sod/Tazobactam 100 mls @ 200 mls/hr 12/20/22 14:31 Sod 4.5 gm/ Sodium Chloride IVPB 12/20/22 15:00 NOW ONE Sodium Chloride 500 mls @ 0 mls/hr 12/20/22 14:36 Saline 500ml Bag IV PRN PRN As Directed Ringer's Solution 1,000 mls @ 75 mls/hr 12/20/22 14:45 IV INFUSION DEEJAY IV Miscellaneous Supplies 1 each 12/20/22 13:00 Iv Access IV DIRECTED DEEJAY IV Miscellaneous Supplies 1 each 12/20/22 14:45 Iv Access IV DIRECTED DEEJAY Sodium Chloride 0 ml 12/20/22 12:49 Normal Saline Flush 10 Ml Syr IVP PRN PRN Sodium Chloride 0 ml 12/20/22 14:36 Normal Saline Flush 10 Ml Syr IVP PRN PRN PFSH Active Problems Active Problems: Problem Status Onset Code Risk for sexually transmitted disease Z72.51 Medical cannabis use Z79.899 Cannabis dependence F12.20 HIV (human immunodeficiency virus infection) ~2018 B20 Bipolar 1 disorder F31.9 Nasal septum ulceration J34.0 ADHD (attention deficit hyperactivity disorder) F90.9 Genital warts A63.0 Anal dysplasia K62.82 Medical History Medical History Cellulitis and abscess of face History of methicillin resistant staphylococcus aureus (MRSA) Infection of rectum due to Chlamydia trachomatis (~05/22/22) PVD (posterior vitreous detachment), left eye Substance use disorder Previous PCP record indicates pt reported using stimulant street drugs in the past (pg 16 of 85 pg PDF) Tertiary syphilis Ocular syphilis Tobacco use disorder Surgical History Surgical History Status post extracapsular cataract extraction of left eye Tobacco Smoking/Tobacco Use Status: Former Tobacco Use Second hand exposure: No Alcohol Alcohol Intake: current Alcohol intake frequency: a few times a month Substance Use Substance use: Daily Substance use type: marijuana Vital Signs and Lab Results Vital Signs Most Recent Vital Signs in EMR: Most Recent Vital Signs Temp Pulse Resp BP Pulse Ox 36.2 C L 110 H 18 117/79 97 12/20/22 12:27 12/20/22 12:27 12/20/22 12:27 12/20/22 12:27 12/20/22 12:27 Lab Results 12/20/22 12:55 12/20/22 12:55 Blood Type / Crossmatch: No Data to Display Complete Blood Count: White Blood Count 9.23 10^3/uL (4.4-10.8) 12/20/22 12:55 Red Blood Count 4.94 10^6/uL (4.36-5.78) 12/20/22 12:55 Hemoglobin 15.1 g/dL (13.5-17.5) 12/20/22 12:55 Hematocrit 43.2 % (40.0-50.0) 12/20/22 12:55 Platelet Count 259 10^3/uL (130-400) 12/20/22 12:55 Complete Metabolic Panel: Sodium 135 mmol/L (136-145) L 12/20/22 12:55 Potassium 3.8 mmol/L (3.5-5.1) 12/20/22 12:55 Chloride 100 mmol/L (98-107) 12/20/22 12:55 Carbon Dioxide 26.0 mmol/L (21.0-32.0) 12/20/22 12:55 BUN 13 mg/dL (7-18) 12/20/22 12:55 Creatinine 1.2 mg/dL (0.70-1.30) 12/20/22 12:55 Est GFR (CKD-EPI 2020) 76.48 (mL/min/1.73m2) 12/20/22 12:55 Magnesium 1.8 mg/dL (1.8-2.4) 12/20/22 12:55 Calcium 9.4 mg/dL (8.5-10.1) 12/20/22 12:55 Albumin 3.5 g/dL (3.4-5.0) 12/20/22 12:55 Glucose 113 mg/dL (74-106) H 12/20/22 12:55 Liver Function Panel: Alanine Aminotransferase (ALT/SGPT) 18 U/L (16-63) 12/20/22 12: 55 Aspartate Amino Transf (AST/SGOT) 12 U/L (15-37) L 12/20/22 12: 55 Coagulation Panel: No Data to Display Cardiac Panel: No Data to Display Arterial Blood Gas: No Data to Display Venous Blood Gas: No Data to Display Pancreas Panel: No Data to Display Thyroid Panel: No Data to Display Infectious Disease: No Data to Display Blood Cultures: No Data to Display Toxicology Panel: No Data to Display Anesthesia Assessment and Plan Anesthesia History Personal History: No History of Anesthesia Complications Family History: No Family History of Anesthesia Complications Exercise Tolerance Exercise Tolerance: Metabolic Equivalents>4 Pertinent Negatives Pertinent Negatives: No Symptoms of GERD, No Major Cardiovascular Symptoms or Complaints, No Major Pulmonary Symptoms or Complaints and No History of CVA/TIA Cardiac & Pulmonary Exam Cardiac Exam: Normal S1/S2 Heart Sounds Pulmonary Exam: Clear Bilateral Breath Sounds Implantable Cardiac Device Does patient have a Pacemaker or an ICD?: No Airway Exam Known Difficult Airway: No Mallampati Class: 1 Mouth Opening: Normal (> 3cm) Thyromental Distance: Greater than 3 cm Neck Range of Motion: Full ROM Neck Circumference: Normal Teeth Condition: Normal Dentition ASA Classification ASA Score: ASA 2 Emergency Case?: Yes NPO Status NPO Status: NPO Clears >2 hours, Solids >8 hours Anesthesia Plan Resuscitation Status: Full Code Anesthesia Technique: General Anesthesia Airway Planned: Natural Airway Monitors Used: Standard Monitors
[2022-12-20] MEDS: Lactated Ringers 1,000 ML 30 ML IV (17:12)
--- NOTE | 2022-12-20 18:03 | W.ANESPOSTOP ---
Postoperative Evaluation Date, Time and Location Date Performed: 12/20/22 Time Performed: 18:03 Patient Location: PACU Vital Signs Most Recent Imported Vital Signs: Most Recent Vital Signs Temp Pulse Resp BP Pulse Ox 36.4 C L 66 19 104/56 L 97 12/20/22 17:55 12/20/22 17:55 12/20/22 17:55 12/20/22 17:55 12/20/22 17:55 Pain Score Most Recent Pain Score: 0/10 per patient Assessment Mental Status: Arousable with meaningful communication Airway and Respiratory Function: Patent airway with normal (patient baseline) respiratory exam Cardiovascular Function: Hemodynamically Stable Hydration Status: Adequately Hydrated Nausea & Vomiting: No Nausea or Vomiting Pain: Pt. Denies Any Pain Peripheral Nerve Block: Patient did not receive a nerve block
--- NOTE | 2022-12-20 18:48 | W.PM.OP ---
Date of service: 12/20/22 Time of Service: 18:48 Operative Note Operative Note DATE OF PROCEDURE: 12/20/22 PRE-OP DIAGNOSIS: Perianal abscess POST-OP DIAGNOSIS: same PROCEDURE: Incision, drainage, and package of left-sided perianal abscess SURGEON: Kevin De Dios ANESTHESIA TYPE: Local By Surgeon and MAC Refer to Anesthesia Record ESTIMATED BLOOD LOSS: 15 PATHOLOGY: other (Fluid for Gram stain and culture) COMPLICATIONS: None Patient was transported to: PACU Patient's condition: stable Indications: Mil is a 42-year-old male with several days of increasing perianal pain. Clinical features seem consistent with a perianal abscess. He underwent CAT scan of the abdomen and pelvis that confirmed this. Procedure Description: After the initiation of monitored anesthetic care, the patient was assisted to lithotomy positioning. The perineum was prepped and draped in the usual fashion. I performed a brief digital rectal exam. Her grade 2 internal hemorrhoids. The anal column is a bit erythematous. I do not see any discrete fistula along the anal canal. Next, I turned my attention back to the external exam. As mentioned elsewhere, there was fluctuance and erythema along the left perianal area. With the patient in supine position, on the clock face, this around 4 and 5 o'clock position. I established a generous field block using local anesthetic. Next, using a scalpel, I incised the area of maximal fluctuance. There was immediate drainage of thick white purulent fluid. The abscess tracked slightly anterior, and slightly posterior deep within the soft tissues. I would estimate it approximately 6 cm deep with several areas of loculation. I broke up the loculated tissue with my finger. I incised the skin once again to form a more cruciate incision. I irrigated the cavity clean after specimens were obtained for Gram stain and culture. A ozzie-pad and mesh underpants were applied, and the patient was brought back to supine positioning as the anesthetic wore off.
[2022-12-20] MEDS: HYDROmorphone 2 MG/ML SYR IVP (18:51)
[2022-12-20] MEDS: Lactated Ringers 1,000 ML 75 ML IV (19:00)
[2022-12-20] MEDS: Enoxaparin 40 MG/0.4 ML SYR SC (20:07)
[2022-12-20] MEDS: PIPERACILLIN/TAZO 3.375 GM in Normal Saline 50 ML IVPB (20:42)
[2022-12-20] MEDS: ACETAMINOPHEN 1,000 MG/100 ML BTL 400 MG IVPB (21:13)
[2022-12-20] MEDS: Normal Saline Flush 10 ML SYR IVP (21:14)
[2022-12-20] MEDS: Ketorolac 15 MG/ML VIAL IVP (22:39)
[2022-12-21 02:06] VITALS: BP 107/61; PULSE 58; RESP 16; TEMP 35.7; O2SAT 99
[2022-12-21] MEDS: PIPERACILLIN/TAZO 3.375 GM in Normal Saline 50 ML IVPB ×2 (02:09→09:07)
[2022-12-21] MEDS: Lactated Ringers 1,000 ML 75 ML IV (02:40)
[2022-12-21 06:38] LABS: Abs Immature Grans 0.04 10^3/uL (0.0-0.06); Absolute Basophil Count 0.01 10^3/uL (0.0-0.2); Absolute Eosinophil Count 0.01 10^3/uL (0.0-0.7); Absolute Lymphocyte Count 0.79 10^3/uL (1.2-3.4); Absolute Neutrophil Count 8.75 10^3/uL (1.2-6.7); Basophils % 0.1; Eosinophils % 0.1; HCT 40.8 % (40.0-50.0); HGB 13.7 g/dL (13.5-17.5); Immature Grans % 0.4; Lymphocytes % 7.7; MCH 30.1 pg (27.0-33.0); MCHC 33.6 % (32.0-36.0); MCV 90 fL (80-95); MPV 9.8 fL (8.0-11.0); Monocytes % 5.9; Neutrophils % 85.8; Platelet Count 260 10^3/uL (130-400); RBC 4.55 10^6/uL (4.36-5.78); RDW 12.1 % (11.8-14.1); RDW-SD 39.8 fL
--- NOTE | 2022-12-21 06:49 | PDOC.HHF2F_ITS ---
Home Health Referral Home Health Orders Clinical synopsis of why skilled professionals are needed: Mil has a medical history that includes HIV and he developed a blanca-anal abscess that required hospitalization Medical diagnosis necessitation home health referral: Blanca-anal abscess that requires wound packing Registered Nurse: Check all that apply Assess for exacerbation of medical condition, instruct patient/caregivers on signs and symptoms to report for early detection: Ordered Assess wound for signs and symptoms of infection, instruct on wound care and/or provide skilled wound care consisting of: removal of wound packing, examination of wound with gentle irrigation and replacement of packing 1/2 iodoform gauze with dressings. Encounter Date and Reason: I certify that a FTF encounter for this patient was performed on December 21, 2022 and that such encounter was related to the primary reason the patient requires home health services. The encounter was conducted in the following manner: * By me as the certifying physician, LOOPING INSPECTOR, PA or * By an inpatient physician, LOOPING INSPECTOR or PA during an inpatient stay who communicated findings to me, Certification And Authentication I certify that I composed the above information based on my clinical judgment relating to this patient's medical condition and, if applicable, clinical findings communicated to me by the NPP or inpatient physician who performed the FTF encounter. Name of Provider that will be monitoring home health services: Kevin De Dios
--- NOTE | 2022-12-21 09:55 | W.PM.PROGNOT ---
Date of Service Date of service: 12/21/22 Time of Service: 09:56 Assessment and Plan Assessment and plan (1) Abscess, perianal: Status: Acute Assessment and plan: Mil is doing great after incision and drainage of perianal abscess. Talked about basic perianal hygiene, and what to expect in terms of wound changes. We will arrange for home health to assist with the packing change tomorrow. He can follow-up in the office with us this week Subjective Subjective Interval history since last seen: Been did great overnight. He tells me he did not have much pain. He was able to sleep okay. He has been tolerating some food. He has not had any bowel movement yet. Exam GI Other: The perianal erythema has resolved. There is a tiny bit of bruising. The wound is clean, and the packing is just a little bloody. Objective Last Vital Signs Temp 96.3 F L 12/21/22 02:06 Pulse 58 L 12/21/22 02:06 Resp 16 12/21/22 02:06 BP 107/61 12/21/22 02:06 Pulse Ox 99 12/21/22 02:06 Laboratory Results - last 24 hr 12/20/22 12/20/22 12/21/22 12:55 12:55 06:02 WBC 9.23 10.20 RBC 4.94 4.55 Hgb 15.1 13.7 Hct 43.2 40.8 MCV 87 90 MCH 30.6 30.1 MCHC 35.0 33.6 RDW 12.2 12.1 Plt Count 259 260 MPV 9.9 9.8 Immature Gran % 0.4 0.4 Neutrophils % 78.8 85.8 Lymphocytes % 10.6 7.7 Monocytes % 8.9 5.9 Eosinophils % 1.0 0.1 Basophils % 0.3 0.1 Nucleated RBC % 0.0 0.0 Absolute Neutrophils 7.27 H 8.75 H Absolute Lymphocytes 0.98 L 0.79 L Absolute Monocytes 0.82 H 0.60 Absolute Eosinophils 0.09 0.01 Absolute Basophils 0.03 0.01 Sodium 135 L Potassium 3.8 Chloride 100 Carbon Dioxide 26.0 Anion Gap 9.0 BUN 13 Creatinine 1.2 Est GFR (CKD-EPI 2020) 76.48 Glucose 113 H Calcium 9.4 Magnesium 1.8 Total Bilirubin 0.9 AST 12 L ALT 18 Alkaline Phosphatase 88 Total Protein 7.9 Albumin 3.5 Time Spent with Patient Time Spent with Patient: 25-34 minutes Time was spent: preparing to see the patient(eg.review tests), counseling the patient and care coordination
--- NOTE | 2022-12-21 09:58 | W.PM.DS.N ---
Date of service: 12/21/22 Time of Service: 09:58 DS: Diagnosis Discharge Diagnosis (1) Abscess, perianal: Status: Acute Asessment and Plan: Status post incision and drainage of abscess; discharge home with home health; follow-up in the office this week Discharge Plan Disposition Patient Disposition: Home W/Home Health Services Condition: Good Discharge Details Reason For Visit: Blanca Anal Abscess Admit Date/Time: 12/20/22 14:37 Admit Provider: Kevin De Dios Attending Provider: Kevin De Dios Primary Care Provider: MichaelRagini butler [facility] Hospital Course: Iam 42 years old, and he comes to the hospital with about 3 days of increasing perianal pain. He went to the operating room on the and underwent incision and drainage of perianal abscess. He was started on broad-spectrum antibiotics, and did well overnight. Pain was controlled in the morning time, and he tolerated dressing change. The incision looked healthy, and he was discharged home with home health nursing for wound care. Home Meds and New Rx's Prescriptions: New sulfamethoxazole-trimethoprim [Bactrim DS] 800-160 mg tablet 1 tab PO BID Qty: 20 0RF Rx Instructions: Take 1 tablet by mouth in the morning, and 1 tablet by mouth in the evening. Please complete this prescription oxycodone 5 mg tablet 5 mg PO Q8H PRNQty: 24 0RF Rx Instructions: 1 tablet by mouth up to every 8 hours if needed for severe pain psyllium Powder 1 tbsp PO DAILY Qty: 300 0RF Rx Instructions: mix into at least 8 oz of water or juice before administering polyethylene glycol 3350 [Miralax] 17 gram/dose powder 17 g PO DAILY Qty: 119 0RF Continued aripiprazole [Abilify] 10 mg tablet 10 mg PO DAILY Vyvanse 50 mg capsule 50 mg PO DAILY lurasidone 40 mg tablet 100 mg PO DAILY Rx Instructions: must administer with food (at least 350 calories) imiquimod 5 % cream in packet 1 applic topical .COMPLEX Qty: 48 0RF Rx Instructions: 1 applic topically 3x/week; Apply a thin layer 3 times per week (on alternate days) at bedtime; leave on skin for 6-10 hours, then remove with mild soap and water. Continue until there is total clearance of the warts or for a maximum duration of therapy of 16 weeks. Seamusy 30-120-15 mg Tablet 1 tab PO DAILY Discharge Instructions Additional Instructions: Mil, it was very nice meeting you in the hospital, and I hope you make a quick recovery from this abscess. Like we talked about before your discharge, everything appears to be doing well after drainage of the infection. I will have my office reach out to you on Friday to schedule a follow-up appointment this week to double check the incision site, and to make any adjustments to your medications if needed. Follow the instructions below, please feel free to call at any time if you have any questions. I have provided a prescription for oxycodone to help with pain. I have also provided a prescription for some stool softeners. 1. Resume all of your regular medications. 2. Obtain a sitz bath from any pharmacy. Soak for 10-15 minutes in warm water mixed with half a cup of baking soda, or Epson salts after each bowel movement, or up to 5 times per day as needed for pain. 3. Okay to use tylenol and ibuprofen over the counter as needed. Use oxycodone as needed for severe pain. 4. Leave bandage in place for 24 hours, then remove. 5. Shower with warm soapy water. Pat dry. Use a menstrual pad to protect your clothing. 6. Call the office (or go directly to the emergency room after hours) if you notice any of the following: Develop chills (warm to touch), or if you have a thermometer and your temperature is above 101 Difficulty breathing or difficultly swallowing Persistent vomiting Any bleeding ? exceeding one tablespoon 7. Call your physician if the site where your intravenous was started becomes red, swollen, painful, and warm to touch. Activity:: Activity as Tolerated Equipment/Supplies:: Sitz bath Diet:: As Tolerated DS: Summary Time Spent with Patient providing and/or coordinating discharge services: Greater than 30 minutes Status at Discharge Functional status at discharge: independent ambulation Overall status at discharge: patient is progressing back to baseline Mental Status: mental status grossly normal Speech and Movement: speech and movement normal Mood: congruent mood Affect: normal affect Exam GI Other: The wound is clean, the erythema has resolved. There is a small amount of ecchymosis. Psych Mental Status: mental status grossly normal Speech and Movement: speech and movement normal Mood: congruent mood Affect: normal affect DS: Data Vitals/I&O Vitals and I&O: Vital Signs Temperature 96.3 F L 12/21/22 02:06 Temperature Source Tympanic 12/21/22 02:06 Pulse 58 L 12/21/22 02:06 Pulse Rhythm Regular 12/21/22 02:45 Respiratory Rate 16 12/21/22 02:06 Respiratory Effort Normal, Non-Labored, Short of Breath 12/21/22 02:45 Respiratory Depth Normal 12/21/22 02:45 Respiratory Pattern Normal 12/21/22 02:45 Blood Pressure 107/61 12/21/22 02:06 Blood Pressure Position Sitting 12/20/22 12:27 Pulse Oximetry 99 12/21/22 02:06 Respiratory End-tidal CO2 35 12/20/22 18:02 Oxygen Delivery Method Room Air 12/21/22 02:06 Oxygen Flow Rate 0 12/21/22 02:06 Pain Level 0 12/21/22 02:06 Intake & Output 12/20/22 12/20/22 12/21/22 11:59 23:59 11:59 Intake Total 150 / 150 865 / 865 Balance 150 / 150 865 / 865 Weight 170 lb Intake: IV 150 / 150 625 / 625 Oral 240 / 240 Other: Urine Appearance Clear Comment unmeasured void Emesis Description None Data Completed and Pending Labs on day of discharge: Labs from last 24 hours 12/21/22 12/20/22 12/20/22 06:02 12:55 12:55 WBC 10.20 9.23 RBC 4.55 4.94 Hgb 13.7 15.1 Hct 40.8 43.2 MCV 90 87 MCH 30.1 30.6 MCHC 33.6 35.0 RDW 12.1 12.2 Plt Count 260 259 MPV 9.8 9.9 Immature Gran % 0.4 0.4 Neutrophils % 85.8 78.8 Lymphocytes % 7.7 10.6 Monocytes % 5.9 8.9 Eosinophils % 0.1 1.0 Basophils % 0.1 0.3 Nucleated RBC % 0.0 0.0 Absolute Neutrophils 8.75 H 7.27 H Absolute Lymphocytes 0.79 L 0.98 L Absolute Monocytes 0.60 0.82 H Absolute Eosinophils 0.01 0.09 Absolute Basophils 0.01 0.03 Sodium 135 L Potassium 3.8 Chloride 100 Carbon Dioxide 26.0 Anion Gap 9.0 BUN 13 Creatinine 1.2 Est GFR (CKD-EPI 2020) 76.48 Glucose 113 H Calcium 9.4 Magnesium 1.8 Total Bilirubin 0.9 AST 12 L ALT 18 Alkaline Phosphatase 88 Total Protein 7.9 Albumin 3.5 12/20/22 15:30 Perirectal Anaerobic Culture - Pending 12/20/22 15:30 Perirectal Abscess Culture - Pending 12/20/22 15:30 Perirectal Gram Stain - Pending Preliminary micro results at discharge 12/20/22 15:30 Anaerobic Culture - Pending Perirectal 12/20/22 15:30 Abscess Culture - Pending Perirectal Gram Stain - Pending [facility] All Active Problems Abscess, perianal (Acute) Risk for sexually transmitted disease (Acute) Medical cannabis use (Chronic) Cannabis dependence (Acute) HIV (human immunodeficiency virus infection) (Chronic ~2017) Bipolar 1 disorder (Chronic) Nasal septum ulceration (Acute) ADHD (attention deficit hyperactivity disorder) (Chronic) Genital warts (Acute) Anal dysplasia (Acute) Medical History Cellulitis and abscess of face History of methicillin resistant staphylococcus aureus (MRSA) Infection of rectum due to Chlamydia trachomatis (~05/22/22) PVD (posterior vitreous detachment), left eye Substance use disorder Previous PCP record indicates pt reported using stimulant street drugs in the past (pg 16 of 85 pg PDF) Tertiary syphilis Ocular syphilis Tobacco use disorder Surgical History Status post extracapsular cataract extraction of left eye Family History Paternal Grandmother Alcohol use disorder Maternal Grandfather Prostate cancer Diabetes Paternal Uncle Throat cancer Mother Diabetes High cholesterol Other Heart disease Social History Smoking/Tobacco Use Status: Former Tobacco Use Tobacco: How many years used: 10 Quit status: has quit before Second Hand Exposure: No Smoking risk assessment performed?: Yes Alcohol Intake: current Alcohol Intake frequency: a few times a month Drug use: Daily Substance use type: marijuana Adopted: No Caregiver/Support person: No Foster care: No Household members: none Housing: apartment Number of Children: 2 Education Level: college Details: Master's Degree Do you need help understanding health information?: Rarely current occupation: unemployed Pets and animals: Yes Pets and animals: dog(s) Sexually active: Yes Do you think of yourself as: bisexual Current gender identity: male What is your relationship status?: How often do you talk on the phone with friends or family?: once per week How often do you get together with friends or relatives?: once per week Do you belong to any clubs or organized social groups?: no Panel score (0-1 are the most socially isolated patients): 0 What type of physical activity do you participate in: none Meli/Church: None Seatbelt use: always Helmet use: Yes Helmet use: always Drive intox or ride w/intox driver wheelchair: No Do you feel safe at home: Yes Do you feel safe in your relationship?: Yes Time Spent with Patient Time Spent with Patient: <45 minutes Time was spent: preparing to see the patient(eg.review tests), ordering medications,tests, procedures, counseling the patient and care coordination
== END 2022-12-21 11:49 | disposition home health service (06) ==
LOC: ER 15:09 → MS 18:08
PROVIDERS: Admitting Provider Surgery; Emergency Provider Emergency Medicine; PCP Nurse Practitioner Family; Visit Provider Surgery
PROC: (CPT 46050; principal; 2022-12-20 15:15)
DX: K61.0 Anal abscess (principal); B20 Human immunodeficiency virus [HIV] disease; F31.9 Bipolar disorder, unspecified; F12.20 Cannabis dependence, uncomplicated; F90.9 Attention-deficit hyperactivity disorder, unspecified type; K62.82 Dysplasia of anus; Z87.891 Personal history of nicotine dependence
CPT/HCPCS: 46050; 36415; 80053; 96365; 96366; 96375; 99222; 99285; J1650; 74177; 83735; 85025; 87070; 87075; 87205; G0378; J0131; J1100; J1170; J1885; J2250; J2405; J2543; J3010

== ENCOUNTER 2023-09-16 17:09 | Emergency (ER) | payer MEDICAID, SELFPAY ==
[2023-09-16 17:13] VITALS: BP 131/83; PULSE 87; RESP 18; TEMP 36.9; O2SAT 97
--- NOTE | 2023-09-16 17:26 | ED.GENADUL_ITS ---
Discharge Plan Disposition Patient Disposition: Home Condition: Stable Discharge Details Clinical Impression: Sprain of left ankle Primary Care Provider: Unknown,Unknown ED Provider: Yoel Gutiérrez Home Meds and New Rx's Prescriptions: Continued imiquimod 5 % cream in packet 1 applic topical .COMPLEX Qty: 48 0RF Rx Instructions: 1 applic topically 3x/week; Apply a thin layer 3 times per week (on alternate days) at bedtime; leave on skin for 6-10 hours, then remove with mild soap and water. Continue until there is total clearance of the warts or for a maximum duration of therapy of 16 weeks. Biktarvy 50-200-25 mg tablet 1 tab PO DAILY Qty: 30 0RF Rx Instructions: Corrected script. lurasidone 40 mg tablet 120 mg PO DAILY Rx Instructions: must administer with food (at least 350 calories) benztropine 2 mg tablet 1 mg PO DAILY Vyvanse 50 mg capsule 60 mg PO DAILY sulfamethoxazole-trimethoprim [Bactrim DS] 800-160 mg tablet 1 tab PO BID Qty: 20 0RF Rx Instructions: Take 1 tablet by mouth in the morning, and 1 tablet by mouth in the evening. Please complete this prescription oxycodone 5 mg tablet 5 mg PO Q8H PRNQty: 24 0RF Rx Instructions: 1 tablet by mouth up to every 8 hours if needed for severe pain psyllium Powder 1 tbsp PO DAILY Qty: 300 0RF Rx Instructions: mix into at least 8 oz of water or juice before administering polyethylene glycol 3350 [Miralax] 17 gram/dose powder 17 g PO DAILY Qty: 119 0RF Discharge Instructions Instructions: Ankle Sprain ED Additional Instructions: You were seen in the emergency department for the sprain of your left ankle. There is no fracture seen on the x-ray. Please rest, ice, compress and elevate the ankle often over the next 4 to 5 days and you should improve. Please take regular doses of Tylenol and ibuprofen as tolerated for acute pain relief. An hkge-pyc-sedooff ankle brace would be useful to help immobilize the ankle and improve healing time. Please return to the emergency department for severe increase in pain, numbness or tingling distal with loss of circulation distal to the ankle, inability to weight-bear. If you have persistent pain past two weeks you may need to see orthopaedics for ligamentous evaluation. Referrals: [facility] [Provider Group] Discharge Data Discharge Date/Time-TO BE ENTERED AT DEPARTURE: 09/16/23 18:31 HPI General Date/Time Provider Initiated Documentation: 09/16/23 17:25 . HPI Narrative: 42 year-old male presents to ED today by POV/ambulating with a chief complaint of L ankle pain, was walking his dog and stepped in a divet- causing a twisting injury to L ankle with onset days ago. Patient is R-foot dominant. Quality described as straining type pain, more painful with weight-bearing, no radiation to gross swelling, deformity, inability to weight-bear, knee pain, numbness/tingling, ROM deficits to foot. Severity is described as moderate. Palliating factors include icing with some relief. Provoking factors include nothing specific. Patient not anticoagulated. Related Data Home Medications Medication Instructions Recorded Confirmed imiquimod 5 % topical cream packet 1 applic topical .COMPLEX #48 ea 07/10/22 12/24/22 oxycodone 5 mg tablet 5 mg PO Q8H PRN #24 tabs 12/21/22 12/24/22 polyethylene glycol 3350 17 17 g PO DAILY #119 grams 12/21/22 12/24/22 gram/dose oral powder (Miralax) psyllium 1 tbsp PO DAILY #300 grams 12/21/22 12/24/22 sulfamethoxazole 800 1 tab PO BID #20 tabs 12/21/22 12/24/22 mg-trimethoprim 160 mg tablet (Bactrim DS) bictegravir 50 mg-emtricitabine 1 tab PO DAILY #30 tabs 02/26/23 200 mg-tenofovir alafenam 25 mg tablet (Biktarvy) benztropine 2 mg tablet 1 mg PO DAILY 06/20/23 lisdexamfetamine 50 mg capsule 60 mg PO DAILY 06/20/23 (Vyvanse) lurasidone 40 mg tablet 120 mg PO DAILY 06/20/23 Previous Rx's Medication Instructions Recorded imiquimod 5 % topical cream packet 1 applic topical .COMPLEX #48 ea 07/10/22 oxycodone 5 mg tablet 5 mg PO Q8H PRN #24 tabs 12/21/22 polyethylene glycol 3350 17 17 g PO DAILY #119 grams 12/21/22 gram/dose oral powder (Miralax) psyllium 1 tbsp PO DAILY #300 grams 12/21/22 sulfamethoxazole 800 1 tab PO BID #20 tabs 12/21/22 mg-trimethoprim 160 mg tablet (Bactrim DS) bictegravir 50 mg-emtricitabine 1 tab PO DAILY #30 tabs 02/26/23 200 mg-tenofovir alafenam 25 mg tablet (Biktarvy) Allergies Allergy/AdvReac Type Severity Reaction Status Date / Time mushroom Allergy Intermediate Swelling/Ed Verified 09/16/23 17:15 christopher pollen extracts Allergy Intermediate Itching Verified 09/16/23 17:15 General Stated Complaint: Orthopedic PATRICK: 4 Review of Systems All systems reviewed & are unremarkable except as noted in HPI and below Exam Narrative Exam Narrative: GENERAL APPEARANCE: Well-nourished, non-toxic, awake and alert, atraumatic, no acute distress. SKIN: Warm, pink, dry, intact, without rashes/lesions/ulcerations. HEAD: Normocephalic, atraumatic, normal hair distribution for gender/age. EYES: Pupils PERRLA, EOMs intact without nystagmus, normal conjunctiva, no exudates on lids/lashes. ENT: Nares patent, no circumoral cyanosis, no facial swelling NECK: Supple, trachea midline, painless cervical ROM. LUNGS/CHEST: Non-labored respirations, normal A/P diameter, symmetrical expansion, no chest wall deformity HEART (CV/PV): Regular rate, no peripheral edema, no JVD. ABDOMEN: Soft, non-distended, no guarding. MSK: Normal ROM, no swelling/deformity to bilateral UEs or LEs, moving all extremities without weakness, no cyanosis, spine midline without tenderness, normal curvature. L ANKLE: TTP L ankle, no deformity, no crepitus, L dorsalis pedis pulse 2+, plantar/dorsiflexion 5/5, sensation intact, no ecchymosis, able to weight-bear NEURO: Mental Status AAOx4 - alert to person, place, time, events No facial droop, no forehead involvement. Motor: No focal weakness - strength 5/5 in bilateral UEs and LEs, proximal and distal, symmetric. Sensory: sensation intact to light touch globally. Gait mildly antalgic. PSYCH: euthymic, cooperative, pleasant, appropriate speech Course Vital Signs Vital signs: Vital Signs Temperature 36.9 C 09/16/23 17:13 Pulse 87 09/16/23 17:13 Respiratory Rate 18 09/16/23 17:13 Blood Pressure 131/83 09/16/23 17:13 Pulse Oximetry 97 09/16/23 17:13 Temperature 36.9 C 09/16/23 17:13 Temperature Source Temporal Artery Scan 09/16/23 17:13 Pulse 87 09/16/23 17:13 Respiratory Rate 18 09/16/23 17:13 Respiratory Effort Normal, Non-Labored 09/16/23 17:14 Blood Pressure 131/83 09/16/23 17:13 Blood Pressure Position Sitting 09/16/23 17:13 Pulse Oximetry 97 09/16/23 17:13 Oxygen Delivery Method Room Air 09/16/23 17:13 Oxygen Flow Rate 0 09/16/23 17:13 Pain Level 5 09/16/23 17:13 Medical Decision Making This dictation utilizes [id number] dictation software and may contain unedited grammatical errors. 42 year-old male presents to ED today by POV/ambulating with a chief complaint of L ankle pain, was walking his dog and stepped in a divet- causing a twisting injury to L ankle with onset days ago. Patient is R-foot dominant. Quality described as straining type pain, more painful with weight-bearing, no radiation to gross swelling, deformity, inability to weight-bear, knee pain, numbness/tingling, ROM deficits to foot. Severity is described as moderate. Palliating factors include icing with some relief. Provoking factors include nothing specific. Patients' medical history: HIV, tertiary syphillis, substance use disorder. Family and social history: noncontributory. Pertinent exam findings / vital signs include TTP L ankle, no deformity, no crepitus, L dorsalis pedis pulse 2+, plantar/dorsiflexion 5/5, sensation intact, no ecchymosis, able to weight-bear. Differential / pathologies of concern include fracture, sprain/strain, ligamentous injury. Diagnostic studies of: -XR L Ankle - no acute fracture seen. Interventions of: -recommend OTC brace, short boot would be overkill, RICE therapy, therapeutic dosing APAP/NSAID, f/u ortho if pain persists > 2 weeks. ED Course/Assessment/Plan: 42-year-old male presents with a left ankle sprain type injury while walking his dog days ago. There is no fracture seen on x-ray he has no gross deformity or crepitus, he is neurovascularly intact distal to the injury, I recommend OTC ankle brace and RICE therapy with therapeutic dosing of Tylenol and ibuprofen and follow-up with orthopedics if pain persist past 2 weeks for evaluation of ligamentous possible injury. Counseled on strict return criteria for any signs of neurovascular compromise or gross swelling despite treatment especially swelling spreading up the leg. Findings not consistent with fracture, neurovascular compromise. Disposition of Sprain of Left Ankle. Patient verbalized understanding of the plan and return to ED criteria and engaged in shared decision making. Medical Records Medical records reviewed: Yes I reviewed the patient's medical records. Imaging Data Radiologic Study: Attestation: I personally reviewed and interpreted this imaging study as follows: Imaging: X-Ray Radiologist's impression: EXAM: XR ANKLE LT COMPLETE CLINICAL HISTORY: L ankle injury. TECHNIQUE: 2D digital imaging was performed. COMPARISON: No exams were available for comparison FINDINGS: 3 views No evidence of fracture or widening of the ankle mortise. Talar dome unremarkable. Bone density normal. No osseous lesions. No obvious tarsal coalition. IMPRESSION: No acute osseous findings. Quality:SDOH Health Related Social Needs: No Data to Display PFSH All Active Problems (Updated 09/16/23 @ 18:21 by SINGH Chavez) Sprain of left ankle (Acute) Risk for sexually transmitted disease (Acute) Medical cannabis use (Chronic) Cannabis dependence (Acute) HIV (human immunodeficiency virus infection) (Chronic ~2018) Bipolar 1 disorder (Chronic) Nasal septum ulceration (Acute) ADHD (attention deficit hyperactivity disorder) (Chronic) Genital warts (Acute) Anal dysplasia (Acute) Medical History (Updated 09/16/23 @ 18:21 by SINGH Chavez) Late syphilitic oculopathy Infection of rectum due to Chlamydia trachomatis (~05/22/22) Substance use disorder Previous PCP record indicates pt reported using stimulant street drugs in the past (pg 16 of 85 pg PDF) Tobacco use disorder PVD (posterior vitreous detachment), left eye Tertiary syphilis Ocular syphilis Cellulitis and abscess of face History of methicillin resistant staphylococcus aureus (MRSA) Surgical History (Updated 12/24/22 @ 10:42 by Chinyere Soto MD) H/O drainage of abscess (~12/20/22) Status post extracapsular cataract extraction of left eye Family History Paternal Grandmother Alcohol use disorder Maternal Grandfather Prostate cancer Diabetes Paternal Uncle Throat cancer Mother Diabetes High cholesterol Other Heart disease Social History Smoking/Tobacco Use Status: Former Tobacco Use Tobacco: How many years used: 10 Quit status: has quit before Second Hand Exposure: No Smoking risk assessment performed?: Yes Alcohol Intake: current Alcohol Intake frequency: a few times a month Drug use: Daily Substance use type: marijuana Details: medical cannabis Adopted: No Caregiver/Support person: No Foster care: No Household members: none Housing: apartment Number of Children: 2 Education Level: college Details: Master's Degree Do you need help understanding health information?: Rarely current occupation: unemployed Pets and animals: Yes Pets and animals: dog(s) Sexually active: Yes Do you think of yourself as: bisexual Current gender identity: male What is your relationship status?: How often do you talk on the phone with friends or family?: once per week How often do you get together with friends or relatives?: once per week Do you belong to any clubs or organized social groups?: no Panel score (0-1 are the most socially isolated patients): 0 What type of physical activity do you participate in: none Meli/Yarsanism: None Seatbelt use: always Helmet use: Yes Helmet use: always 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
--- NOTE | 2023-09-16 17:30 | DI.RAD_ITS ---
Exam(s) XR ANKLE LT COMPLETE EXAM: XR ANKLE LT COMPLETE CLINICAL HISTORY: L ankle injury. TECHNIQUE: 2D digital imaging was performed. COMPARISON: No exams were available for comparison FINDINGS: 3 views No evidence of fracture or widening of the ankle mortise. Talar dome unremarkable. Bone density nor mal. No osseous lesions. No obvious tarsal coalition. IMPRESSION: No acute osseous findings. DATA REPOSITORY: RADIATION DOSE DELIVERED:
== END 2023-09-16 18:31 | disposition home or self-care (01) ==
PROVIDERS: Emergency Provider Physician Assistant
DX: S93.402A Sprain of unspecified ligament of left ankle, initial encounter (principal); X50.1XXA Overexertion from prolonged static or awkward postures, initial encounter; Y93.K1 Activity, walking an animal; Y92.017 Garden or yard in single-family (private) house as the place of occurrence of the external cause
CPT/HCPCS: 99283; 73610

== ENCOUNTER 2023-09-30 06:31 | Emergency (ER) | payer MEDICAID, SELFPAY ==
[2023-09-30 06:33] VITALS: BP 136/97; PULSE 79; RESP 18; TEMP 36.7; O2SAT 98
--- NOTE | 2023-09-30 06:39 | ED.GENADUL_ITS ---
Discharge Plan Discharge Details Chief Complaint: GenMedical Primary Care Provider: Unknown,Unknown ED Provider: Daniel Arambula [place] Meds and New Rx's Prescriptions: No Action imiquimod 5 % cream in packet 1 applic topical .COMPLEX Qty: 48 0RF Rx Instructions: 1 applic topically 3x/week; Apply a thin layer 3 times per week (on alternate days) at bedtime; leave on skin for 6-10 hours, then remove with mild soap and water. Continue until there is total clearance of the warts or for a maximum duration of therapy of 16 weeks. Biktarvy 50-200-25 mg tablet 1 tab PO DAILY Qty: 30 0RF Rx Instructions: Corrected script. lurasidone 40 mg tablet 120 mg PO DAILY Rx Instructions: must administer with food (at least 350 calories) benztropine 2 mg tablet 1 mg PO DAILY Vyvanse 50 mg capsule 60 mg PO DAILY sulfamethoxazole-trimethoprim [Bactrim DS] 800-160 mg tablet 1 tab PO BID Qty: 20 0RF Rx Instructions: Take 1 tablet by mouth in the morning, and 1 tablet by mouth in the evening. Please complete this prescription oxycodone 5 mg tablet 5 mg PO Q8H PRNQty: 24 0RF Rx Instructions: 1 tablet by mouth up to every 8 hours if needed for severe pain psyllium Powder 1 tbsp PO DAILY Qty: 300 0RF Rx Instructions: mix into at least 8 oz of water or juice before administering polyethylene glycol 3350 [Miralax] 17 gram/dose powder 17 g PO DAILY Qty: 119 0RF HPI General Mode of arrival: ambulatory . Date/Time Provider Initiated Documentation: 09/30/23 06:38 . Limitations to Documentation: no limitations . Information obtained by: patient . HPI Narrative: Patient presents to ED with rectal pain. He has had a prior history of perirectal abscess. First noticed some discomfort yesterday. This morning significant pain. Able to have bowel movement but very uncomfortable. Noticed a little bit of blood on the toilet paper. Was not constipated at all. Denies any difficulty urinating. Denies any fever, chills, back pain, abdominal pain. Related Data Home Medications Medication Instructions Recorded Confirmed imiquimod 5 % topical cream packet 1 applic topical .COMPLEX #48 ea 07/10/22 12/24/22 oxycodone 5 mg tablet 5 mg PO Q8H PRN #24 tabs 12/21/22 12/24/22 polyethylene glycol 3350 17 17 g PO DAILY #119 grams 12/21/22 12/24/22 gram/dose oral powder (Miralax) psyllium 1 tbsp PO DAILY #300 grams 12/21/22 12/24/22 sulfamethoxazole 800 1 tab PO BID #20 tabs 12/21/22 12/24/22 mg-trimethoprim 160 mg tablet (Bactrim DS) bictegravir 50 mg-emtricitabine 1 tab PO DAILY #30 tabs 02/26/23 200 mg-tenofovir alafenam 25 mg tablet (Biktarvy) benztropine 2 mg tablet 1 mg PO DAILY 06/20/23 lisdexamfetamine 50 mg capsule 60 mg PO DAILY 06/20/23 (Vyvanse) lurasidone 40 mg tablet 120 mg PO DAILY 06/20/23 Previous Rx's Medication Instructions Recorded imiquimod 5 % topical cream packet 1 applic topical .COMPLEX #48 ea 07/10/22 oxycodone 5 mg tablet 5 mg PO Q8H PRN #24 tabs 12/21/22 polyethylene glycol 3350 17 17 g PO DAILY #119 grams 12/21/22 gram/dose oral powder (Miralax) psyllium 1 tbsp PO DAILY #300 grams 12/21/22 sulfamethoxazole 800 1 tab PO BID #20 tabs 12/21/22 mg-trimethoprim 160 mg tablet (Bactrim DS) bictegravir 50 mg-emtricitabine 1 tab PO DAILY #30 tabs 02/26/23 200 mg-tenofovir alafenam 25 mg tablet (Biktarvy) Allergies Allergy/AdvReac Type Severity Reaction Status Date / Time mushroom Allergy Intermediate Swelling/Ed Verified 09/30/23 06:37 christopher pollen extracts Allergy Intermediate Itching Verified 09/30/23 06:37 General Stated Complaint: GenMedical PATRICK: 4 Review of Systems Narrative: Per HPI Exam Narrative Exam Narrative: Const: WDWN male in NAD. VS per triage. HEENT: NC/AT. Normal facial exam. Neck: Supple. Trachea midline. Lungs: Normal respiratory effort. GI: Soft/ND/NT. External anal area is normal. TASHIA with fullness and tenderness right side. No gross blood. Neuro: A+O x 3. Normal speech, mentation, gait. Cranial nerves II - XII grossly intact. No gross motor or sensory deficit. Ext: No C/C/E. Course Vital Signs Vital signs: Vital Signs Temperature 98.1 F 09/30/23 06:33 Pulse 79 09/30/23 06:33 Respiratory Rate 18 09/30/23 06:33 Blood Pressure 136/97 H 09/30/23 06:33 Pulse Oximetry 98 09/30/23 06:33 Temperature 98.1 F 09/30/23 06:33 Temperature Source Skin 09/30/23 06:33 Pulse 79 09/30/23 06:33 Respiratory Rate 18 09/30/23 06:33 Respiratory Effort Normal 09/30/23 06:37 Blood Pressure 136/97 H 09/30/23 06:33 Blood Pressure Position Sitting 09/30/23 06:33 Pulse Oximetry 98 09/30/23 06:33 Oxygen Delivery Method Room Air 09/30/23 06:33 Oxygen Flow Rate 0 09/30/23 06:33 Medical Decision Making Patient presenting to ED with rectal pain. Previous history of perirectal abscess requiring I&D in the OR. Looks well and denies any fever, chills, abdominal pain. Perianal area, external exam unremarkable. TASHIA reveals fullness and tenderness in the right rectal wall. Will place IV and start fluids, ketorolac for pain. CBC and BMP sent. Pelvic CT ordered to evaluate for recurrent perirectal abscess. Signed out to oncoming ED physician pending results. Medical Records Medical records reviewed: Yes I reviewed the patient's medical records. Medical records narrative: previous admission for I&D [facility] All Active Problems Sprain of left ankle (Acute) Risk for sexually transmitted disease (Acute) Medical cannabis use (Chronic) Cannabis dependence (Acute) Nasal septum ulceration (Acute) Genital warts (Acute) Anal dysplasia (Acute) Medical History Bipolar 1 disorder HIV (human immunodeficiency virus infection) (~2018) ADHD (attention deficit hyperactivity disorder) Late syphilitic oculopathy Substance use disorder Previous PCP record indicates pt reported using stimulant street drugs in the past (pg 16 of 85 pg PDF) Tobacco use disorder PVD (posterior vitreous detachment), left eye Tertiary syphilis Ocular syphilis History of methicillin resistant staphylococcus aureus (MRSA) Surgical History H/O drainage of abscess (~12/20/22) Status post extracapsular cataract extraction of left eye Family History Paternal Grandmother Alcohol use disorder Maternal Grandfather Prostate cancer Diabetes Paternal Uncle Throat cancer Mother Diabetes High cholesterol Other Heart disease Social History Smoking/Tobacco Use Status: Former Tobacco Use Tobacco: How many years used: 10 Quit status: has quit before Second Hand Exposure: No Smoking risk assessment performed?: Yes Alcohol Intake: current Alcohol Intake frequency: a few times a month Drug use: Daily Substance use type: marijuana Details: medical cannabis Adopted: No Caregiver/Support person: No Foster care: No Household members: none Housing: apartment Number of Children: 2 Education Level: college Details: Master's Degree Do you need help understanding health information?: Rarely current occupation: unemployed Pets and animals: Yes Pets and animals: dog(s) Sexually active: Yes Do you think of yourself as: bisexual Current gender identity: male What is your relationship status?: How often do you talk on the phone with friends or family?: once per week How often do you get together with friends or relatives?: once per week Do you belong to any clubs or organized social groups?: no Panel score (0-1 are the most socially isolated patients): 0 What type of physical activity do you participate in: none Meli/Baptist: None Seatbelt use: always Helmet use: Yes Helmet use: always Drive intox or ride w/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 Signed out to oncoming physician pending labs and CT result. Last updated by Daniel Arambula MD at 09/30/23 07:12
[2023-09-30] MEDS: Lactated Ringers 1,000 ML 1000 ML IV (07:11)
[2023-09-30] MEDS: Ketorolac 15 MG/ML VIAL IVP (07:11)
[2023-09-30 07:17] LABS: Abs Immature Grans 0.02 10^3/uL (0.0-0.06); Absolute Basophil Count 0.03 10^3/uL (0.0-0.2); Absolute Eosinophil Count 0.39 10^3/uL (0.0-0.7); Absolute Lymphocyte Count 1.14 10^3/uL (1.2-3.4); Absolute Monocyte Count 0.52 10^3/uL (0.1-0.8); Absolute Neutrophil Count 2.63 10^3/uL (1.2-6.7); Basophils % 0.6 %; Eosinophils % 8.2 %; HCT 40.9 % (40.0-50.0); HGB 13.8 g/dL (13.5-17.5); Immature Grans % 0.4 %; Lymphocytes % 24.1 %; MCH 30.7 pg (27.0-33.0); MCHC 33.7 % (32.0-36.0); MCV 91 fL (80-95); MPV 9.6 fL (8.0-11.0); Neutrophils % 55.7 %; Platelet Count 252 10^3/uL (130-400); RDW 12.7 % (11.8-14.1); RDW-SD 41.9 fL; WBC 4.73 10^3/uL (4.4-10.8)
[2023-09-30 07:26] LABS: Anion Gap 7.5 mmol/L (3-11); BUN 12 mg/dL (7-18); CO2 27.5 mmol/L (21.0-32.0); CREATININE 1.2 mg/dL (0.70-1.30); Calcium 8.8 mg/dL (8.5-10.1); Chloride 106 mmol/L (98-107); Estimated GFR 76.48 (mL/min/1.73m2); Glucose 103 mg/dL (74-106); Potassium 4.2 mmol/L (3.5-5.1); Sodium 141 mmol/L (136-145)
--- NOTE | 2023-09-30 07:40 | W.EDPROG ---
Date of service: 09/30/23 Time of Service: 08:52 Medical Decision Making Patient accepted in signout from off going provider pending CT imaging. Patient is a 42-year-old gentleman with past medical history of HIV, bipolar disorder presenting with rectal pain. Per examination from prior provider, there is high suspicion for perirectal abscess. The patient has had a perirectal abscess previously that required surgical drainage. During the patient's stay in the emergency department, the CT scanner malfunctioned and we were unable to get CT imaging. I did discuss with surgery, and they recommended an MRI. The MRI would not be able to be done for several more hours, and the patient became frustrated with waiting. I offered to transfer to another hospital to complete his workup, but the patient has decided to leave. Given his high risk for infectious etiology and concerning examination, he is leaving AGAINST MEDICAL ADVICE, but understands the risks and is able to make this decision. Encouraged close follow-up with another facility returning to this facility when capabilities have returned to normal. Medical Records Medical records reviewed: Yes I reviewed the patient's medical records. Quality:[facility] Health Related Social Needs: No Data to Display Sign Out Sign Out Data: Sign Out Comment: Patient with history of perirectal abscess presenting with rectal pain. Signed out to oncoming physician pending labs and CT result. Last updated by Daniel Arambula MD at 09/30/23 07:12 Discharge Plan Disposition Patient Disposition: Against Medical Advice Discharge Details Clinical Impression: Rectal pain Primary Care Provider: Unknown,Unknown ED Provider: Trinidad Franklin Home Meds and New Rx's Prescriptions: No Action Biktarvy 50-200-25 mg tablet 1 tab PO DAILY Qty: 30 0RF Rx Instructions: Corrected script. lurasidone 40 mg tablet 120 mg PO DAILY Rx Instructions: must administer with food (at least 350 calories) benztropine 2 mg tablet 1 mg PO DAILY Vyvanse 50 mg capsule 60 mg PO DAILY clonidine HCl 0.1 mg tablet 0.1 mg PO BID PRN Patient Comments: TAKE ONE TABLET BY MOUTH TWICE A DAY NEEDED alprazolam 1 mg tablet extended release 24 hr 1 mg PO DAILY Patient Comments: TAKE ONE TABLET BY MOUTH EVERY DAY Discharge Instructions Additional Instructions: unfortunately we weren't able to make a diagnosis today because of equipment failure it is recommended that you seek care elsewhere for further evaluation and treatment of your suspected ozzie-rectal abscess
--- NOTE | 2023-09-30 08:16 | W.SURGCON ---
Date of service: 09/30/23 Time of Service: 08:16 Assessment and Plan Assessment and plan (1) Cannabis dependence: Status: Acute (2) Nasal septum ulceration: Status: Acute (3) Rectal pain: Status: Acute Assessment and plan: pt left ama prior to mri or being seen (4) Anal dysplasia: Status: Acute (5) Genital warts: Status: Acute (6) Risk for sexually transmitted disease: Status: Acute (7) ADHD (attention deficit hyperactivity disorder): (8) Bipolar 1 disorder: (9) Substance use disorder: (10) History of methicillin resistant staphylococcus aureus (MRSA): (11) Tobacco use disorder: PENDING SALE TO [facility] All Active Problems (Updated 09/30/23 @ 08:51 by Trinidad Franklin MD) Rectal pain (Acute) Sprain of left ankle (Acute) Risk for sexually transmitted disease (Acute) Medical cannabis use (Chronic) Cannabis dependence (Acute) Nasal septum ulceration (Acute) Genital warts (Acute) Anal dysplasia (Acute) Medical History Bipolar 1 disorder HIV (human immunodeficiency virus infection) (~2018) ADHD (attention deficit hyperactivity disorder) Late syphilitic oculopathy Substance use disorder Previous PCP record indicates pt reported using stimulant street drugs in the past (pg 16 of 85 pg PDF) Tobacco use disorder PVD (posterior vitreous detachment), left eye Tertiary syphilis Ocular syphilis History of methicillin resistant staphylococcus aureus (MRSA) Surgical History H/O drainage of abscess (~12/20/22) Status post extracapsular cataract extraction of left eye Family History Paternal Grandmother Alcohol use disorder Maternal Grandfather Prostate cancer Diabetes Paternal Uncle Throat cancer Mother Diabetes High cholesterol Other Heart disease Social History Smoking/Tobacco Use Status: Former Tobacco Use Tobacco: How many years used: 10 Quit status: has quit before Second Hand Exposure: No Smoking risk assessment performed?: Yes Alcohol Intake: current Alcohol Intake frequency: a few times a month Drug use: Daily Substance use type: marijuana Details: medical cannabis Adopted: No Caregiver/Support person: No Foster care: No Household members: none Housing: apartment Number of Children: 2 Education Level: college Details: Master's Degree Do you need help understanding health information?: Rarely current occupation: unemployed Pets and animals: Yes Pets and animals: dog(s) Sexually active: Yes Do you think of yourself as: bisexual Current gender identity: male What is your relationship status?: How often do you talk on the phone with friends or family?: once per week How often do you get together with friends or relatives?: once per week Do you belong to any clubs or organized social groups?: no Panel score (0-1 are the most socially isolated patients): 0 What type of physical activity do you participate in: none Meli/Orthodoxy: None Seatbelt use: always Helmet use: Yes Helmet use: always Drive intox or ride w/intox 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 Do you feel safe at home: Yes Do you feel safe in your relationship?: Yes Results Last Vital Signs Temp 36.7 C 09/30/23 06:33 Pulse 79 09/30/23 06:33 Resp 18 09/30/23 06:33 BP 136/97 H 09/30/23 06:33 Pulse Ox 98 09/30/23 06:33 Labs 09/30/23 07:10 09/30/23 07:10 Labs: Laboratory Results - last 24 hr 09/30/23 07:10 WBC 4.73 RBC 4.50 Hgb 13.8 Hct 40.9 MCV 91 MCH 30.7 MCHC 33.7 RDW 12.7 Plt Count 252 MPV 9.6 Immature Gran % 0.4 Neutrophils % 55.7 Lymphocytes % 24.1 Monocytes % 11.0 Eosinophils % 8.2 Basophils % 0.6 Nucleated RBC % 0.0 Absolute Neutrophils 2.63 Absolute Lymphocytes 1.14 L Absolute Monocytes 0.52 Absolute Eosinophils 0.39 Absolute Basophils 0.03 Sodium 141 Potassium 4.2 Chloride 106 Carbon Dioxide 27.5 Anion Gap 7.5 BUN 12 Creatinine 1.2 Est GFR (CKD-EPI 2020) 76.48 Glucose 103 Calcium 8.8
[2023-09-30 08:53] VITALS: BP 150/95; PULSE 72; RESP 16; TEMP 36.4; O2SAT 97
== END 2023-09-30 09:02 | disposition left against medical advice (07) ==
PROVIDERS: Emergency Medicine; Emergency Provider Emergency Medicine
DX: K62.82 Dysplasia of anus; A63.0 Anogenital (venereal) warts; Z72.51 High risk heterosexual behavior; K62.89 Other specified diseases of anus and rectum; Z53.21 Procedure and treatment not carried out due to patient leaving prior to being seen by health care provider
CPT/HCPCS: 00123; 80048; 96361; 96374; 99284; 85025; J1885

== ENCOUNTER 2023-12-18 13:32 | Outpatient (CLI) | payer MEDICAID, SELFPAY ==
[2023-12-18 12:30] LABS: Abs Immature Grans 0.03 10^3/uL (0.0-0.06); Absolute Basophil Count 0.02 10^3/uL (0.0-0.2); Absolute Lymphocyte Count 0.71 10^3/uL (1.2-3.4); Absolute Monocyte Count 0.77 10^3/uL (0.1-0.8); Absolute Neutrophil Count 4.33 10^3/uL (1.2-6.7); Basophils % 0.3 %; Eosinophils % 3.3 %; HCT 42.8 % (40.0-50.0); HGB 14.6 g/dL (13.5-17.5); Immature Grans % 0.5 %; Lymphocytes % 11.7 %; MCH 30.7 pg (27.0-33.0); MCHC 34.1 % (32.0-36.0); MCV 90 fL (80-95); MPV 9.4 fL (8.0-11.0); Monocytes % 12.7 %; Neutrophils % 71.5 %; Platelet Count 235 10^3/uL (130-400); RBC 4.75 10^6/uL (4.36-5.78); RDW 12.6 % (11.8-14.1); RDW-SD 41.3 fL; WBC 6.06 10^3/uL (4.4-10.8)
[2023-12-18 13:24] LABS: ALT 18 U/L (16-63); AST 10 U/L (15-37); Albumin 3.7 g/dL (3.4-5.0); Alkaline Phosphatase 75 U/L (46-116); Anion Gap 6.6 mmol/L (3-11); BUN 12 mg/dL (7-18); Bilirubin, Total 0.37 mg/dL (0.2-1.0); CO2 28.4 mmol/L (21.0-32.0); CREATININE 1.2 mg/dL (0.70-1.30); Calcium 8.9 mg/dL (8.5-10.1); Calculated LDL 91 mg/dL (<100); Chloride 103 mmol/L (98-107); Cholesterol 168 mg/dL (<200); Glucose 75 mg/dL (74-106); HDL Cholesterol 56 mg/dL (40-60); Potassium 4.3 mmol/L (3.5-5.1); Sodium 138 mmol/L (136-145); Total Protein 7.3 g/dL (6.4-8.2); Triglyceride 106 mg/dL (<150)
[2023-12-19 09:52] LABS: Hepatitis C Ab w Rflx HCV PCR Negative (Negative)
[2023-12-19 13:55] LABS: Chlamydia Result Negative (Negative); GC Result Negative (Negative)
[2023-12-19 15:24] LABS: 4/8 Ratio 0.75 (>=0.90); Absolute CD3 675 Cells/uL (840-2669); Absolute CD8 382 Cells/uL (154-1097); CD3 77 % (56-84); CD4 32 % (31-64); CD8 44 % (9-39)
[2023-12-22 12:42] LABS: HIV 1 RNA Qualitative Undetected Copys/mL (Undetected)
[2023-12-29 11:16] LABS: RPR Screen w/Reflex Positive (Negative)
== END 2023-12-18 13:33 | disposition home or self-care (01) ==
LOC: LBO 13:32
PROVIDERS: Visit Provider Internal Medicine Addiction Medicine
DX: B20 Human immunodeficiency virus [HIV] disease (principal)
CPT/HCPCS: 0064U; 36415; 80053; 80061; 86593; 86803; 87491; 87536; 87591; 85025; 86359; 86360